=== PATIENT | male | born 1955 | race Caucasian/White ===

== ENCOUNTER → 2017-03-14 | Outpatient (CLI) | payer OTHER ==
[~2017-03-14] MED LIST: ASPI81TA27 PO; ATEN-60 PO; CLOP75TA28 PO; MELA3TAB18 PO; NOR10T PO; SIMV-13 PO
== END | disposition home or self-care (01) ==
LOC: Rad HDHVI 13:04
PROVIDERS: ATTEND Internal Medicine Cardiovascular Disease
DX: R42 Dizziness and giddiness (principal); Z95.0 Presence of cardiac pacemaker
CPT/HCPCS: 93306

== ENCOUNTER → 2017-04-14 | Outpatient (CLI) | payer OTHER ==
[~2017-04-14] VITALS: Ht 182.9 cm; Wt 93.0 kg
[~2017-04-14] MED LIST changes: +ADENOSINE 78 MG in GIVE UN-DILUTED 0 ML IV ONE; +ADENOSINE 90 MG/30 ML INJ IV ONE
[2017-04-14 12:42] LABS: Urine Bilirubin Negative (Negative); Urine Blood Negative /uL (Negative); Urine Color Yellow (Yellow); Urine Glucose Normal (Normal); Urine Ketone Negative (Negative); Urine Nitrite Negative (Negative); Urine Urobilinogen Normal (Negative); Urine pH 5.5 (5.0-8.0)
[2017-04-14 12:44] LABS: Basophils # (auto) 0 uL; Basophils % (auto) 0.6 % (0.0-2.0); CONDITION Y; Eosinophils # (auto) 0.4 uL; Eosinophils % (auto) 5.2 % (0.0-7.0); Hematocrit 43.8 % (41.0-53.0); Hemoglobin 14.4 g/dL (13.5-17.5); Lymphocytes # (auto) 1.9 uL; Lymphocytes % (auto) 24.5 % (10.0-50.0); Mean Corpuscular Hemoglobin 28.6 pg (28.0-32.0); Mean Corpuscular Volume 86.7 fL (80.0-100.0); Monocytes # (auto) 0.5 uL; Monocytes % (auto) 6.3 % (0.0-12.0); Neutrophils # (auto) 4.9 uL; Neutrophils % (auto) 63.4 % (37.0-80.0); Platelet Count (auto) 207 10^3/uL (140-450); Red Cell Distribution Width 14.4 % (11.6-16.0); White Blood Cell 7.7 10^3/uL (4.4-10.8)
[2017-04-14 12:55] LABS: Albumin 3.5 g/dL (3.4-5.0); Alkaline Phosphatase 85 U/L (45-117); Anion Gap 8 (5-15); Aspartate Aminotransferase 18 U/L (15-37); BUN/Creatinine Ratio 15.3; Bilirubin, Direct < 0.1 mg/dL (0-0.2); Bilirubin, Total 0.4 mg/dL (0.2-1.0); Blood Urea Nitrogen 30 mg/dL (7-18); Calcium 8.9 mg/dL (8.5-10.1); Carbon Dioxide 22 mmol/L (21-32); Chloride 109 mmol/L (98-107); Cholesterol 184 mg/dL (< 200); GFR African American 45 mL/min; GFR Non-African American 37 mL/min; Glucose 100 mg/dL (74-106); HDL Cholesterol 24 mg/dL (40-59); LDL Cholesterol 132 mg/dL (< 100); Potassium 4.6 mmol/L (3.5-5.1); Sodium 139 mmol/L (136-145); Total Protein 7.2 g/dL (6.4-8.2); Triglycerides 196 mg/dL (< 150)
== END | disposition home or self-care (01) ==
LOC: Rad HDHVI 07:59
PROVIDERS: ATTEND Internal Medicine Cardiovascular Disease
DX: I10 Essential (primary) hypertension (principal); D64.9 Anemia, unspecified; E78.00 Pure hypercholesterolemia, unspecified; R53.81 Other malaise; R97.20 Elevated prostate specific antigen [PSA]; R79.89 Other specified abnormal findings of blood chemistry
CPT/HCPCS: 36415; 78452; 80048; 80061; 80076; 81003; 82306; 83036; 84153; 84403; 84443; 85025; 93005; 96374; 96375; A9500; J0153

== ENCOUNTER → 2017-05-23 | Outpatient (CLI) | payer OTHER ==
[~2017-05-23] MED LIST changes: -ADENOSINE 78 MG in GIVE UN-DILUTED 0 ML IV ONE; -ADENOSINE 90 MG/30 ML INJ IV ONE
== END | disposition home or self-care (01) ==
LOC: Rad HDHVI 09:00
PROVIDERS: ATTEND Internal Medicine Cardiovascular Disease
DX: I70.1 Atherosclerosis of renal artery (principal); I71.4 Abdominal aortic aneurysm, without rupture
CPT/HCPCS: 93923

== ENCOUNTER → 2018-06-06 | Outpatient (CLI) | payer OTHER ==
[~2018-06-06] MED LIST changes: +IOHEXOL 350 MG/ML 100ML IJ ONE
[2018-06-06 11:00] VITALS: BP 114/71
[2018-06-06 11:45] VITALS: BP 125/68
== END | disposition home or self-care (01) ==
LOC: Rad HDHVI 10:54
PROVIDERS: ATTEND Internal Medicine
DX: I67.2 Cerebral atherosclerosis (principal); R42 Dizziness and giddiness; I50.9 Heart failure, unspecified; F17.200 Nicotine dependence, unspecified, uncomplicated
CPT/HCPCS: 70450; 82565; G0463; Q9967

== ENCOUNTER → 2019-05-09 | Outpatient (CLI) | payer OTHER ==
[~2019-05-09] VITALS: Ht 182.9 cm; Wt 93.0 kg
[~2019-05-09] MED LIST changes: +ADENOSINE 78 MG in GIVE UN-DILUTED 0 ML IV ONE; +ADENOSINE 90 MG/30 ML INJ IV ONE; +ASPI-404 PO; -ASPI81TA27 PO; -IOHEXOL 350 MG/ML 100ML IJ ONE; +cloNIDine HCL 0.1 MG TAB ONE
[2019-05-09 15:49] LABS: Basophils # (auto) 0 uL; Basophils % (auto) 0.5 % (0.0-2.0); Eosinophils # (auto) 0.3 uL; Eosinophils % (auto) 4.7 % (0.0-7.0); Hematocrit 45.7 % (41.0-53.0); Hemoglobin 14.9 g/dL (13.5-17.5); Lymphocytes # (auto) 1.5 uL; Lymphocytes % (auto) 21.3 % (10.0-50.0); Mean Corpuscular Hemoglobin 28.3 pg (28.0-32.0); Mean Corpuscular Hgb Conc. 32.7 g/dL (32.0-36.0); Mean Corpuscular Volume 86.8 fL (80.0-100.0); Monocytes # (auto) 0.6 uL; Monocytes % (auto) 8.1 % (0.0-12.0); Neutrophils # (auto) 4.5 uL; Neutrophils % (auto) 65.4 % (37.0-80.0); Nucleated Red Blood Cells % 0.1 %; Platelet Count (auto) 178 10^3/uL (140-450); Red Blood Cells 5.27 10^6/uL (4.5-5.90); Red Cell Distribution Width 14.8 % (11.8-14.3); White Blood Cell 6.9 10^3/uL (4.4-10.8)
[2019-05-09 15:50] LABS: Urine Blood Negative /uL (Negative)
[2019-05-09 16:00] LABS: Albumin 3.4 g/dL (3.4-5.0); Potassium 4.2 mmol/L (3.5-5.1)
[2019-05-09 16:07] LABS: BUN/Creatinine Ratio 13.8; Bilirubin, Total 0.3 mg/dL (0.2-1.0); Calcium 8.9 mg/dL (8.5-10.1); Total Protein 7.5 g/dL (6.4-8.2)
[2019-05-09 16:11] LABS: Prostate Specific Antigen 0.6 ng/mL (0.0-4.0)
[2019-05-09 16:13] LABS: Free T4 (Free Thyroxine) 1.08 ng/dL (0.89-1.76)
== END | disposition home or self-care (01) ==
LOC: Rad HDHVI 08:11
PROVIDERS: ATTEND Internal Medicine Cardiovascular Disease
DX: Z00.00 Encounter for general adult medical examination without abnormal findings (principal); I34.0 Nonrheumatic mitral (valve) insufficiency; E03.9 Hypothyroidism, unspecified; C61 Malignant neoplasm of prostate; E29.1 Testicular hypofunction; K90.9 Intestinal malabsorption, unspecified; N39.0 Urinary tract infection, site not specified; D51.9 Vitamin B12 deficiency anemia, unspecified; I10 Essential (primary) hypertension; R00.2 Palpitations; Z79.899 Other long term (current) drug therapy
CPT/HCPCS: 36415; 78452; 80053; 80061; 81003; 82306; 82607; 83036; 84153; 84403; 84439; 84443; 85025; 93005; 93306; 96374; 96375; A9500; J0153

== ENCOUNTER → 2019-07-03 | Outpatient (CLI) | payer OTHER ==
[~2019-07-03] MED LIST changes: -ADENOSINE 78 MG in GIVE UN-DILUTED 0 ML IV ONE; -ADENOSINE 90 MG/30 ML INJ IV ONE; +READI-CAT 2 (BARIUM SULF)(VANILLA SMOOTHIE) 450ML ONE; -cloNIDine HCL 0.1 MG TAB ONE
== END | disposition home or self-care (01) ==
LOC: Rad HDHVI 14:52
PROVIDERS: ATTEND Internal Medicine Cardiovascular Disease
DX: I71.4 Abdominal aortic aneurysm, without rupture (principal); K57.90 Diverticulosis of intestine, part unspecified, without perforation or abscess without bleeding; D71 Functional disorders of polymorphonuclear neutrophils; N26.1 Atrophy of kidney (terminal)
CPT/HCPCS: 74176

== ENCOUNTER → 2019-07-09 | Outpatient (CLI) | payer OTHER ==
[~2019-07-09] MED LIST changes: -READI-CAT 2 (BARIUM SULF)(VANILLA SMOOTHIE) 450ML ONE
[2019-07-09 16:05] LABS: Albumin 3.2 g/dL (3.4-5.0); BUN/Creatinine Ratio 11.5; Calcium 9.2 mg/dL (8.5-10.1); Potassium 4.8 mmol/L (3.5-5.1)
[2019-07-09 16:08] LABS: Basophils # (auto) 0 uL; Basophils % (auto) 0.7 % (0.0-2.0); Bilirubin, Total 0.4 mg/dL (0.2-1.0); Eosinophils # (auto) 0.3 uL; Eosinophils % (auto) 5.1 % (0.0-7.0); Hematocrit 41.7 % (41.0-53.0); Hemoglobin 13.7 g/dL (13.5-17.5); Lymphocytes # (auto) 0.8 uL; Lymphocytes % (auto) 14.1 % (10.0-50.0); Mean Corpuscular Hemoglobin 28.4 pg (28.0-32.0); Mean Corpuscular Hgb Conc. 32.9 g/dL (32.0-36.0); Mean Corpuscular Volume 86.3 fL (80.0-100.0); Monocytes # (auto) 0.6 uL; Monocytes % (auto) 10.4 % (0.0-12.0); Neutrophils % (auto) 69.7 % (37.0-80.0); Nucleated Red Blood Cells % 0.1 %; Platelet Count (auto) 174 10^3/uL (140-450); Red Blood Cells 4.83 10^6/uL (4.5-5.90); Total Protein 7.5 g/dL (6.4-8.2); White Blood Cell 5.8 10^3/uL (4.4-10.8)
[2019-07-09 16:42] LABS: Free T4 (Free Thyroxine) 1.2 ng/dL (0.89-1.76)
[2019-07-09 16:43] LABS: Prostate Specific Antigen 1.15 ng/mL (0.0-4.0)
== END | disposition home or self-care (01) ==
LOC: LAB 09:51
PROVIDERS: ATTEND Internal Medicine Cardiovascular Disease
DX: E03.9 Hypothyroidism, unspecified (principal); K90.9 Intestinal malabsorption, unspecified; C61 Malignant neoplasm of prostate; E29.1 Testicular hypofunction; I11.0 Hypertensive heart disease with heart failure; I50.9 Heart failure, unspecified; Z79.899 Other long term (current) drug therapy
CPT/HCPCS: 36415; 80053; 80061; 82306; 82607; 83036; 83735; 84153; 84403; 84439; 84443; 85025

== ENCOUNTER → 2019-07-24 | Outpatient (CLI) | payer OTHER ==
[2019-07-24 16:05] LABS: Albumin 3.3 g/dL (3.4-5.0); Calcium 9.2 mg/dL (8.5-10.1); Potassium 4.5 mmol/L (3.5-5.1)
[2019-07-24 16:12] LABS: BUN/Creatinine Ratio 14.6; Bilirubin, Total 0.4 mg/dL (0.2-1.0); Total Protein 7.8 g/dL (6.4-8.2)
== END | disposition home or self-care (01) ==
LOC: LAB 13:10
PROVIDERS: ATTEND Internal Medicine Cardiovascular Disease
DX: I10 Essential (primary) hypertension (principal)
CPT/HCPCS: 36415; 80053

== ENCOUNTER → 2019-08-14 | Outpatient (CLI) | payer OTHER ==
[~2019-08-14] MED LIST changes: +FURO40TA4 PO; +LIDOCAINE 2%HCL (LOCAL ANESTH.) INJ 20ML MDV ONE; +OMEP20TA85 PO; +POTA-180 PO
[2019-08-14 11:05] VITALS: BP 125/74
[2019-08-14 11:36] VITALS: BP 125/74
--- NOTE | 2019-08-14 11:36 | NUR ---
Pre-Op Discharge Summary: See e-MAR for any medications given for this visit. Pre-op orders received and carried out per MD of EKG, LABS and chest xrays. Patient given a copy of EKG with instructions to go to [facility] out patient for further follow up care.
[2019-08-14 11:58] LABS: Basophils # (auto) 0.1 uL; Basophils % (auto) 0.8 % (0.0-2.0); Eosinophils # (auto) 0.6 uL; Eosinophils % (auto) 9.5 % (0.0-7.0); Hematocrit 39.6 % (41.0-53.0); Hemoglobin 12.9 g/dL (13.5-17.5); Lymphocytes # (auto) 1.6 uL; Lymphocytes % (auto) 24.6 % (10.0-50.0); Mean Corpuscular Hemoglobin 28.7 pg (28.0-32.0); Mean Corpuscular Hgb Conc. 32.7 g/dL (32.0-36.0); Mean Corpuscular Volume 87.9 fL (80.0-100.0); Monocytes # (auto) 0.5 uL; Monocytes % (auto) 8.3 % (0.0-12.0); Neutrophils # (auto) 3.7 uL; Neutrophils % (auto) 56.8 % (37.0-80.0); Nucleated Red Blood Cells % 0.1 %; Platelet Count (auto) 139 10^3/uL (140-450); White Blood Cell 6.5 10^3/uL (4.4-10.8)
[2019-08-14 12:08] LABS: INR 0.98 (0.9-1.15); Partial Thromboplastin Time 28.4 sec (23.64-32.05)
[2019-08-14 12:24] LABS: Potassium 4.3 mmol/L (3.5-5.1)
[2019-08-14 12:42] LABS: BUN/Creatinine Ratio 16.1
== END | disposition home or self-care (01) ==
LOC: Rad HDHVI 10:04
PROVIDERS: ATTEND Internal Medicine Cardiovascular Disease
DX: Z01.812 Encounter for preprocedural laboratory examination (principal); R94.31 Abnormal electrocardiogram [ECG] [EKG]
CPT/HCPCS: 36415; 71046; 80048; 85025; 85610; 85730; 93005; G0463

== ENCOUNTER 2019-08-15 09:35 | Day surgery (SDC) | payer OTHER ==
[~2019-08-15] VITALS: Ht 182.9 cm; Wt 86.2 kg
[~2019-08-15 09:35] MED LIST changes: -LIDOCAINE 2%HCL (LOCAL ANESTH.) INJ 20ML MDV ONE
[2019-08-15] MEDS ORDERED: ANGIOMAX 250 MG VIAL IV ONE (11:11)
[2019-08-15] MEDS ORDERED: fentaNYL CITRATE 100 MCG/2 ML VL ONE (11:12)
[2019-08-15] MEDS ORDERED: IODIXANOL 320MG/ML 100ML BTL IV ONE (11:12)
[2019-08-15] MEDS ORDERED: SODIUM CHL 0.9% 50 ML ONE (11:12)
[2019-08-15] MEDS ORDERED: MIDAZOLAM HCL 1MG/1ML-2 ML VIAL ONE (11:12)
[2019-08-15] MEDS ORDERED: LIDOCAINE 2%HCL (LOCAL ANESTH.) INJ 20ML MDV ONE (11:13)
[2019-08-15] MEDS ORDERED: ONDANSETRON HCL 4 MG/2 ML VIAL ONE ×2 (11:58→12:30)
[2019-08-15] MEDS ORDERED: ONDANSETRON HCL 4 MG/2 ML VIAL IV PRN (12:15)
[2019-08-15] MEDS ORDERED: FUROSEMIDE 20 MG/2 ML VIAL IV ONE (12:15)
[2019-08-15] MEDS ORDERED: SODIUM CHLORIDE 0.9% 500 ML IV ONE (12:15)
[2019-08-15] MEDS ORDERED: ACETAMINOPHEN 500 MG TAB PO PRN (12:15)
[2019-08-15] MEDS ORDERED: FUROSEMIDE 20 MG/2 ML VIAL ONE (13:16)
== END 2019-08-15 15:15 | disposition home or self-care (01) ==
LOC: CATH 09:35
PROVIDERS: ATTEND Internal Medicine Cardiovascular Disease
DX: I25.810 Atherosclerosis of coronary artery bypass graft(s) without angina pectoris (principal); I25.5 Ischemic cardiomyopathy; I13.0 Hypertensive heart and chronic kidney disease with heart failure and stage 1 through stage 4 chronic kidney disease, or unspecified chronic kidney disease; N18.3 Chronic kidney disease, stage 3 (moderate); I50.9 Heart failure, unspecified; E78.5 Hyperlipidemia, unspecified; I73.9 Peripheral vascular disease, unspecified; F17.210 Nicotine dependence, cigarettes, uncomplicated; Z88.8 Allergy status to other drugs, medicaments and biological substances; Z95.1 Presence of aortocoronary bypass graft; Z79.82 Long term (current) use of aspirin; Z79.899 Other long term (current) drug therapy
CPT/HCPCS: 93005; 93461; C1751; C1760; C1894; J1644; J1940; J2250; J2405; J3010; Q9967; 99152; 99153

== ENCOUNTER → 2019-09-25 | Outpatient (CLI) | payer OTHER ==
[~2019-09-25] MED LIST changes: +CYANOCOBALAMIN (B-12) 1000 MCG/1 ML VIAL IM ONE; +CYANOCOBALAMIN (B-12) 1000 MCG/1 ML VIAL ONE
--- NOTE | 2019-09-25 09:55 | NUR ---
PT. TO [facility]F CLINIC FOR INDUCTION AFTER RECENT ANGIOGRAM SHOWING REDUCED EF. PT. 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 PT. ALSO WITH CRI, WITH HX OF CREATININE GREATER THAN 3 PER PT. WHEN HOSPITALIZED AT [facility]. MEDICAL RECORDS REQUESTED. PT. IS AOX4 , PWD, WITH 4+ PITTING EDEMA RLE AND 3+ PITTING EDEMA TO LLE, EXTREMITY OF EVH WITH CABG. PT. STATES HE HAS BEEN USING MORE LASIX THAN HIS 20MG PER DAY RX, MOSTLY 40-60MG DAILY. PT. STATES HE KEEPS HIS IRONER APPRISED OF DIURETIC INCREASE, WHEN HE SEES HIM. (SONIA). ORDERS RECEIVED AND CARRIED OUT. SEE NSG ASSESS.
--- NOTE | 2019-09-25 10:05 | NUR ---
CARDIODYNAMICS DONE WITH RESULTS REVIEWED WITH PT. AND CHARTED FOR MD REVIEW.
--- NOTE | 2019-09-25 10:10 | NUR ---
EKG DONE SHOWING ATRIAL PACED COMPLEXES. RATE RECENTLY INCREASED TO 70BPM, AFTER INCREASING FATIGUE. PT. WITH 100% CAPTURE, WITH NO PVC'S NOTED.
--- NOTE | 2019-09-25 10:30 | NUR ---
6MWT DONE WITH PT. ONLY DOING 180 METERS WITH C/O SOB DURING TEST, AND HIP PAIN 3/10 DURING TEST. O2 SATS DECREASED TO 91% DURING WALK FROM BASELINE 98% PRE TEST. RESULTS REVIEWED WITH PT. AND CHARTED FOR MD REVIEW. NOTE: PT. STATED THAT HE HAS BEEN USING NEIGHBORS O2 CONCENTRATOR D/T WORSENING SOB WITH EXERTION.
--- NOTE | 2019-09-25 11:30 | NUR ---
LABS DRAWN AND SENT PER MD ORDER.
--- NOTE | 2019-09-25 11:45 | NUR ---
NOW AT BEDSIDE WITH LIST OF PT'S MEDS. MED REC REVIEWED WITH PT. AND UPDATED FOR MD REVIEW. PT. STATES HE TAKES ALL OF HIS MEDS IN THE MORNING. PT"S PREVIOUS ABNORMAL LABS REVIEWED WITH PT. AND SPOUSE.
--- NOTE | 2019-09-25 12:05 | NUR ---
MEDS: PT. MEDICATED WITH VIT. B12 1000MCG IM RT DELT. PER MD ORDER.
[2019-09-25 12:15] VITALS: BP 135/71
--- NOTE | 2019-09-25 12:15 | NUR ---
Discharge Instructions See e-MAR for any mediations given with this visit. Patient education given on disease process. Patient verbalized understanding. Previous labs reviewed. Patient discharged in stable condition with after care instructions and follow up appointment. WE WILL FOLLOW UP ON PREVIOUS ORDER FOR HOME O2 ORDER, AND WILL FAX LAB RESULTS TO DR. SCOTT FOR HIS APPT. PT. TO BE CALLED AFTER MD [place]. OF DIAGNOSTICS AND LABS. ALL QUESTIONS ANSWERED, WITH ADDITIONAL INSTRUCTION ON 2 GM SODIUM CARDIAC DIET, ELEVATING LEGS MUCH POSSIBLE IN HIS NEW RECLINER, AND DO DAILY WTS.
[2019-09-25 15:58] LABS: Basophils # (auto) 0.1 uL; Basophils % (auto) 0.8 % (0.0-2.0); Eosinophils # (auto) 0.4 uL; Eosinophils % (auto) 6.7 % (0.0-7.0); Hematocrit 35.4 % (41.0-53.0); Hemoglobin 11.7 g/dL (13.5-17.5); Lymphocytes % (auto) 15.2 % (10.0-50.0); Mean Corpuscular Hemoglobin 28.6 pg (28.0-32.0); Mean Corpuscular Volume 86.8 fL (80.0-100.0); Monocytes # (auto) 0.6 uL; Monocytes % (auto) 8.7 % (0.0-12.0); Neutrophils # (auto) 4.6 uL; Neutrophils % (auto) 68.6 % (37.0-80.0); Nucleated Red Blood Cells % 0.1 %; Platelet Count (auto) 161 10^3/uL (140-450); Red Blood Cells 4.08 10^6/uL (4.5-5.90); Red Cell Distribution Width 16.3 % (11.8-14.3); White Blood Cell 6.6 10^3/uL (4.4-10.8)
[2019-09-25 16:05] LABS: Calcium 8.7 mg/dL (8.5-10.1)
[2019-09-25 16:06] LABS: BUN/Creatinine Ratio 15.3
== END | disposition home or self-care (01) ==
LOC: CHF HDHVI 09:41
PROVIDERS: ATTEND Internal Medicine Cardiovascular Disease
DX: I25.10 Atherosclerotic heart disease of native coronary artery without angina pectoris (principal); I13.0 Hypertensive heart and chronic kidney disease with heart failure and stage 1 through stage 4 chronic kidney disease, or unspecified chronic kidney disease; I50.9 Heart failure, unspecified; N18.3 Chronic kidney disease, stage 3 (moderate); I49.5 Sick sinus syndrome; I73.9 Peripheral vascular disease, unspecified; D64.9 Anemia, unspecified; R09.02 Hypoxemia; E78.5 Hyperlipidemia, unspecified; Z79.82 Long term (current) use of aspirin; Z87.891 Personal history of nicotine dependence; Z79.899 Other long term (current) drug therapy; Z95.1 Presence of aortocoronary bypass graft
CPT/HCPCS: 36415; 80048; 83735; 83880; 85025; 93005; 93701; 94618; 96372; G0463; J3420

== ENCOUNTER 2020-08-10 07:57 | Emergency (ER) | payer OTHER ==
[~2020-08-10] VITALS: Ht 182.9 cm; Wt 83.9 kg
[~2020-08-10 07:57] MED LIST changes: -ASPI-404 PO; +ASPI-543 PO; -CYANOCOBALAMIN (B-12) 1000 MCG/1 ML VIAL IM ONE; -CYANOCOBALAMIN (B-12) 1000 MCG/1 ML VIAL ONE
[2020-08-10 08:48] LABS: Basophils # (auto) 0 10 ^3/uL (0-0.2); Eosinophils # (auto) 0.3 10 ^3/uL (0-0.8); Eosinophils % (auto) 3.8 % (0.0-7.0); Mean Corpuscular Volume 81.3 fL (80.0-100.0); Monocytes # (auto) 0.9 10 ^3/uL (0-1.3)
[2020-08-10 08:50] LABS: Basophils % (auto) 0.5 % (0.0-2.0); Hematocrit 34.4 % (41.0-53.0); Hemoglobin 10.9 g/dL (13.5-17.5); Lymphocytes # (auto) 0.7 10 ^3/uL (0.4-5.4); Lymphocytes % (auto) 8.6 % (10.0-50.0); Mean Corpuscular Hemoglobin 25.7 pg (28.0-32.0); Mean Corpuscular Hgb Conc. 31.6 g/dL (32.0-36.0); Monocytes % (auto) 11.3 % (0.0-12.0); Neutrophils # (auto) 5.9 10 ^3/uL (1.6-8.6); Neutrophils % (auto) 75.8 % (37.0-80.0); Platelet Count (auto) 184 10^3/uL (140-450); Red Blood Cells 4.23 10^6/uL (4.5-5.90); Red Cell Distribution Width 17.3 % (11.8-14.3); White Blood Cell 7.8 10^3/uL (4.4-10.8)
[2020-08-10 09:04] LABS: INR 1.15 (0.9-1.15); Partial Thromboplastin Time 27.6 sec (23.0-31.2)
[2020-08-10 09:08] LABS: Albumin 3.7 g/dL (3.4-5.0); Calcium 9.2 mg/dL (8.5-10.1); Magnesium 3.7 mg/dL (1.6-2.6); Potassium 4.3 mmol/L (3.5-5.1)
[2020-08-10 09:16] LABS: BUN/Creatinine Ratio 24.3; Bilirubin, Total 0.7 mg/dL (0.2-1.0); Total Protein 7.8 g/dL (6.4-8.2)
[2020-08-10 10:21] LABS: Urine Bacteria NONE SEEN /hpf (None Seen); Urine Blood Negative /uL (Negative); Urine Hyaline Cast MOD /lpf (0 - 2); Urine WBC 1 /hpf (0 - 3)
[2020-08-10 11:00] VITALS: BP 160/86
== END 2020-08-10 13:48 | disposition home or self-care (01) ==
LOC: ER 07:57
DX: G93.41 Metabolic encephalopathy (principal); I12.9 Hypertensive chronic kidney disease with stage 1 through stage 4 chronic kidney disease, or unspecified chronic kidney disease; N18.9 Chronic kidney disease, unspecified; D64.9 Anemia, unspecified; F03.90 Unspecified dementia, unspecified severity, without behavioral disturbance, psychotic disturbance, mood disturbance, and anxiety; I25.10 Atherosclerotic heart disease of native coronary artery without angina pectoris; Z88.8 Allergy status to other drugs, medicaments and biological substances
CPT/HCPCS: 36415; 71045; 80053; 81001; 83735; 84484; 85025; 85610; 85730; 93005

== ENCOUNTER 2020-08-25 10:25 | Inpatient (IN) | payer OTHER ==
[~2020-08-25] VITALS: Ht 182.9 cm; Wt 87.0 kg
[2020-08-25] MEDS ORDERED: SODIUM CHLORIDE 0.9% 2,500 ML IV ONE (11:00)
[2020-08-25] MEDS ORDERED: SODIUM CHLORIDE 0.9% 1,000 ML IV ONE ×2 (11:00→13:15)
[2020-08-25 11:55] LABS: Basophils # (auto) 0 10 ^3/uL (0-0.2); Basophils % (auto) 0.5 % (0.0-2.0); Eosinophils # (auto) 0.1 10 ^3/uL (0-0.8); Hematocrit 32.7 % (41.0-53.0); Hemoglobin 10.1 g/dL (13.5-17.5); Lymphocytes # (auto) 0.5 10 ^3/uL (0.4-5.4); Monocytes # (auto) 0.5 10 ^3/uL (0-1.3); Neutrophils # (auto) 6.6 10 ^3/uL (1.6-8.6); White Blood Cell 7.7 10^3/uL (4.4-10.8)
[2020-08-25 11:56] LABS: Eosinophils % (auto) 1.2 % (0.0-7.0); Mean Corpuscular Hemoglobin 24.5 pg (28.0-32.0); Mean Corpuscular Volume 79.1 fL (80.0-100.0); Monocytes % (auto) 7.1 % (0.0-12.0); Neutrophils % (auto) 85.2 % (37.0-80.0); Platelet Count (auto) 168 10^3/uL (140-450); Red Blood Cells 4.13 10^6/uL (4.5-5.90)
[2020-08-25 12:23] LABS: Albumin 3.4 g/dL (3.4-5.0); Calcium 9.6 mg/dL (8.5-10.1); Potassium 4.1 mmol/L (3.5-5.1)
[2020-08-25 12:26] LABS: BUN/Creatinine Ratio 18.4; Total Protein 7.6 g/dL (6.4-8.2)
[2020-08-25] MEDS ORDERED: NITROGLYCERIN 0.4 MG SL TAB SL PRN (13:00)
[2020-08-25] MEDS ORDERED: VANCOMYCIN 1GM/250ML 250 ML IV ONE (13:00)
[2020-08-25] MEDS ORDERED: GENTAMICIN SULFATE 240 MG in D5W 5% 100 ML IV ONE ×2 (13:15→20:00)
--- NOTE | 2020-08-25 14:37 | NUR ---
RECEIVED REPORT FROM EMMA IN ER, WILL AWAIT PATIENT.
[2020-08-25 15:06] LABS: Phosphorus 4.7 mg/dL (2.5-4.90)
--- NOTE | 2020-08-25 15:10 | NUR ---
CONTACTED DAYANNA COBURN, MADE AWARE OF DR ROWE ORDERS FOR PERITONEAL DIALYSIS AND THE SPECIFIC INSTRUCTIONS UNDER COMMUNICATION NOTE. VERBALIZES UNDERSTANDING.
--- NOTE | 2020-08-25 15:47 | NUR ---
CONTACTED DR MONROE FOR PATIENTS HIGH BLOOD PRESSURE 164/[address] MONROE ORDERS RECEIVED FOR CLONIDINE 0.1MG Q 4 PRN
[2020-08-25] MEDS ORDERED: GENT0.1O5 TOP (16:32)
[2020-08-25] MEDS ORDERED: CHOL20007 PO (16:53)
[2020-08-25 16:57] VITALS: BP 155/84
[2020-08-25] MEDS ORDERED: SODI10PA PO (17:00)
[2020-08-25] MEDS ORDERED: MELA10CA PO (17:01)
[2020-08-25] MEDS ORDERED: DOCU-80 PO (17:03)
[2020-08-25] MEDS ORDERED: CALC500C66 PO (17:05)
[2020-08-25] MEDS ORDERED: HYDR4CRE35 PR (17:08)
[2020-08-25] MEDS ORDERED: [UNRECOGNIZED DRUG - CODE] EX (17:10)
[2020-08-25] MEDS ORDERED: PERITONEAL DIALYSIS 2.5% SOLN 2,000 ML IP SCH (18:00)
[2020-08-25] MEDS ORDERED: PERITONEAL DIALYSIS 2.5% SOLN 2,000 ML IP ONE ×2 (18:15→20:00)
[2020-08-25] MEDS ORDERED: FLUT1AER3 IN (19:11)
[2020-08-25] MEDS ORDERED: EZET10TA22 PO (19:11)
[2020-08-25] MEDS: cloNIDine HCL 0.1 MG TAB PO PRN (19:43)
[2020-08-25] MEDS: MORPHINE SULF INJ 2 MG/ML SYRINGE 1ML IV PRN (19:43)
--- NOTE | 2020-08-25 20:00 | NUR ---
PD CARRIED OUT WITH 500 ML PD SOLUTION 2.5% ORDERED. ADVISED PATIENT TO TURN FROM SIDE TO SIDE WHILE DIALYSIS IS ONGOING. WILL LEAVE TO DWELL FOR 15 MINUTES ORDERED AND DRAIN. WILL FOLLOW UP.
[2020-08-25 21:30] VITALS: BP 145/72
--- NOTE | 2020-08-25 21:30 | NUR ---
PD OUTPUT SENT TO LAB.
--- NOTE | 2020-08-25 22:10 | NUR ---
UA SENT TO LAB FOR UA AND URINE CULTURE.
[2020-08-25 22:42] LABS: Urine Bacteria NONE SEEN /hpf (None Seen); Urine Blood Negative /uL (Negative); Urine Hyaline Cast MANY /lpf (0 - 2); Urine Mucus FEW (None Seen); Urine Specific Gravity 1.015 (1.001-1.035); Urine WBC 1 /hpf (0 - 3)
[2020-08-26] MEDS: MORPHINE SULF INJ 2 MG/ML SYRINGE 1ML IV PRN (02:32)
[2020-08-26 04:39] VITALS: BP 144/80
--- NOTE | 2020-08-26 07:30 | NUR ---
RECEIVED REPORT FROM NIGHT NURSE. PATIENT RESTING IN BED, NO DISTRESS NOTED. WILL CONTINUE TO MONITOR.
[2020-08-26] MEDS ORDERED: CHOLECALCIFEROL (VITD3) 1,000UNIT=25mCg TAB PO SCH (08:00)
[2020-08-26 09:00] VITALS: BP 146/84
[2020-08-26] MEDS: ATENOLOL 25 MG TAB PO SCH (09:23)
[2020-08-26] MEDS: PANTOPRAZOLE 40 MG TAB PO SCH (09:23)
[2020-08-26] MEDS: CLOPIDOGREL BISULFATE 75 MG TAB PO SCH (09:23)
[2020-08-26] MEDS: FUROSEMIDE 40 MG/4 ML VIAL IV SCH ×2 (09:30→17:25)
[2020-08-26] MEDS ORDERED: ALLOPURINOL 100 MG TAB PO SCH (10:00)
[2020-08-26] MEDS ORDERED: FUROSEMIDE 40 MG/4 ML VIAL IV SCH (10:00)
[2020-08-26] MEDS: EZETIMIBE 10MG PO SCH (10:00)
[2020-08-26] MEDS ORDERED: PERITONEAL DIALYSIS 2.5% SOLN 2,000 ML IP SCH ×4 (10:00→22:00)
[2020-08-26] MEDS: ALLOPURINOL 100 MG TAB PO SCH ×2 (10:00→11:23)
--- NOTE | 2020-08-26 10:48 | NUR ---
PAGED DOCTOR RIBEIRO FOR ORDER CLARIFICATION. WILL WAIT FOR CALL BACK.
[2020-08-26] MEDS: CALCITRIOL 0.25 MCG CAP PO SCH (11:23)
[2020-08-26 11:40] VITALS: BP 151/88
--- NOTE | 2020-08-26 12:11 | NUR ---
Nutrition Assessment Note: please see attached link for complete assessment Est energy needs BW 85 [id number] kcal (30-33 kcal BW), Est protein needs: 102-120 g (1.2-1.5g/kg BW r/t PD). Will reassess prn Addendum: 08/26/20 at [address] Amended: Links added.
--- NOTE | 2020-08-26 12:34 | NUR ---
DOCTOR RIBEIRO AT BEDSIDE.
--- NOTE | 2020-08-26 12:35 | NUR ---
PER DOCTOR QUINTIN, NO PERITONEAL DIALYSIS AT THIS TIME. PATIENT TO FOLLOW UP WITH DR. SCOTT OUT PATIENT. CLEARED FROM A NEPHROLOGY STANDPOINT.
[2020-08-26] MEDS: DOBUTamine 1000MCG/ML 250 ML IV SCH (14:39)
[2020-08-26 16:31] VITALS: BP 141/71
--- NOTE | 2020-08-26 17:30 | NUR ---
DOCTOR MONROE AT BEDSIDE. ORDERS RECEIVED, WILL PLACE AND CARRY OUT.
--- NOTE | 2020-08-26 17:33 | NUR ---
doctor hunter at Addendum: 08/26/20 at 1734 by Lyn Hensley RN DISREGARD PREVIOUS ENTRY
[2020-08-26] MEDS: ATORVASTATIN 20 MG TAB PO SCH (21:42)
[2020-08-26 22:05] VITALS: BP 156/81
[2020-08-26] MEDS: LEVALBUTEROL HCL 1.25 MG/3 ML NEB NEB SCH (22:23)
--- NOTE | 2020-08-26 22:30 | NUR ---
AT BEDSIDE FOR MED NEB TX. PT TOLERATING TX WELL VIA MASK. RT NAME AND PAGER ASSIGNMENT WRITTEN ON PTS ROOM BOARD.
[2020-08-27] VITALS (7 sets, daily range): BP systolic 143–160; BP diastolic 72–83
[2020-08-27] MEDS ORDERED: PERITONEAL DIALYSIS 2.5% SOLN 2,000 ML IP SCH (06:00)
[2020-08-27] MEDS: FUROSEMIDE 40 MG/4 ML VIAL IV SCH ×2 (06:15→17:44)
[2020-08-27 06:30] LABS: Potassium 3.8 mmol/L (3.5-5.1)
[2020-08-27] MEDS: LEVALBUTEROL HCL 1.25 MG/3 ML NEB NEB SCH ×3 (06:31→18:13)
[2020-08-27 06:38] LABS: Albumin 2.8 g/dL (3.4-5.0); BUN/Creatinine Ratio 20.7; Bilirubin, Total 0.6 mg/dL (0.2-1.0); Calcium 8.7 mg/dL (8.5-10.1); Total Protein 6.3 g/dL (6.4-8.2)
--- NOTE | 2020-08-27 07:30 | NUR ---
RECEIVED REPORT FROM NIGHT NURSE. PATIENT RESTING IN BED, NO DISTRESS NOTED. WILL CONTINUE TO MONITOR.
--- NOTE | 2020-08-27 08:42 | NUR ---
PATIENT COMPLAINING OF NAUSEA/ DRY HEAVES. PAGED DR. MONROE FOR ORDERS.
--- NOTE | 2020-08-27 08:43 | NUR ---
RECEIVED ORDERS FROM DR. MONROE, WILL PLACE AND CARRY OUT.
[2020-08-27] MEDS ORDERED: METOCLOPRAMIDE HCL 5MG/ml INJ 2ml VIAL IV PRN (08:45)
[2020-08-27] MEDS: DOBUTamine 1000MCG/ML 250 ML IV SCH (09:35)
[2020-08-27] MEDS: EZETIMIBE 10MG PO SCH (10:00)
[2020-08-27] MEDS: ALLOPURINOL 100 MG TAB PO SCH (10:22)
[2020-08-27] MEDS: PANTOPRAZOLE 40 MG TAB PO SCH ×2 (10:22→21:08)
[2020-08-27] MEDS: CALCITRIOL 0.25 MCG CAP PO SCH (10:23)
[2020-08-27] MEDS: ATENOLOL 25 MG TAB PO SCH (10:23)
[2020-08-27] MEDS: CLOPIDOGREL BISULFATE 75 MG TAB PO SCH (10:23)
[2020-08-27] MEDS: cloNIDine HCL 0.1 MG TAB PO PRN (13:48)
--- NOTE | 2020-08-27 14:41 | NUR ---
assessment Patient is a 64 year old male who is alert and oriented and seems irritated with answering questions. Per patient prior to admission patient lived home with his Abhilash and functioned independently. Patient informed me he is able to care for his own ADLs. Per patient he will return home to his prior living arrangements post discharge and family will transport him home. Patient informed me he has oxygen for home use. Patient informed me he has no need for fww or cane. Patients PCP is Dr Diaz. Patient informed me he came to Er for chest pain. Patient has no post discharge needs identified at this time. I informed patient he has a right to speak to a social service coordinator regarding all care. I informed patient he has a right to participate in any and all discharge planning. Patient does not have a POA and advanced directive. I have offered patient information on POA and advanced directives. I informed the patient the advantages and benefits of having an Advanced Directive. Patient verbalized understanding and agreed to discharge plan. Addendum: 08/27/20 at 1453 by Marcy GAMEZ Amended: Links added.
--- NOTE | 2020-08-27 15:06 | NUR ---
PATIENT OFF UNIT. AMA PAPERWORK SIGNED AND PLACED IN CHART. PATIENT IN LOBBY VISITING WITH . EDUCATION PROVIDED.
--- NOTE | 2020-08-27 16:00 | NUR ---
DOCTOR ARENAS AT BEDSIDE.
[2020-08-27] MEDS: SUCRALFATE 1 GM/10 ML ORAL SUSP PO SCH ×2 (17:00→21:08)
--- NOTE | 2020-08-27 17:31 | NUR ---
PATIENT NPO UNTIL AFTER ABDOMINAL ULTRASOUND. 1700 CARAFATE DOSE HELD.
[2020-08-27] MEDS: ATORVASTATIN 20 MG TAB PO SCH (21:08)
[2020-08-28 05:24] VITALS: BP 145/74
[2020-08-28] MEDS: SUCRALFATE 1 GM/10 ML ORAL SUSP PO SCH ×3 (05:52→17:00)
[2020-08-28] MEDS: FUROSEMIDE 40 MG/4 ML VIAL IV SCH ×2 (05:53→18:00)
[2020-08-28] MEDS: DOBUTamine 1000MCG/ML 250 ML IV SCH (05:53)
[2020-08-28] MEDS: LEVALBUTEROL HCL 1.25 MG/3 ML NEB NEB SCH ×2 (06:39→14:00)
[2020-08-28 06:48] LABS: Albumin 2.8 g/dL (3.4-5.0); BUN/Creatinine Ratio 19.5; Calcium 8.7 mg/dL (8.5-10.1)
[2020-08-28 06:51] LABS: Bilirubin, Total 0.7 mg/dL (0.2-1.0); Total Protein 6.7 g/dL (6.4-8.2)
[2020-08-28 09:20] VITALS: BP 154/76
--- NOTE | 2020-08-28 09:30 | NUR ---
Held Medication Held Plavix due to possible procedure. Dr. Diaz is aware.
[2020-08-28] MEDS: ALLOPURINOL 100 MG TAB PO SCH (09:33)
[2020-08-28] MEDS: CALCITRIOL 0.25 MCG CAP PO SCH (09:33)
[2020-08-28] MEDS: PANTOPRAZOLE 40 MG TAB PO SCH (09:33)
[2020-08-28] MEDS: ATENOLOL 25 MG TAB PO SCH (09:33)
[2020-08-28] MEDS: EZETIMIBE 10MG PO SCH (09:35)
[2020-08-28] MEDS: CLOPIDOGREL BISULFATE 75 MG TAB PO SCH (09:35)
[2020-08-28 11:50] LABS: INR 1.17 (0.9-1.15); Partial Thromboplastin Time 26.8 sec (23.0-31.2)
[2020-08-28 12:59] VITALS: BP 146/75
[2020-08-28 18:21] VITALS: BP 146/75
[2020-08-28 19:20] VITALS: BP 154/79
--- NOTE | 2020-08-28 19:25 | NUR ---
Discharge instructions given as ordered. Encourage to follow up with Monday08/31/2020 @10am as instructed. All questions and concerns addressed. Patient verbalized understanding. Medication reconciliation form completed and copy given to patient. IV removed with catheter intact, pressure dressing applied. Telemetry unit returned to ICU. Patient taken to vehicle via wheelchair with all personal belongings, accompanied by staff. No distress noted at time of departure.
--- NOTE | 2020-08-28 19:32 | NUR ---
Closing Shift Note Patient resting in bed. Report given. Will endorse care to the manufacturing shift supervisor care RN. Dobutamine has been stopped. shift mgr RN to discharge.
== END 2020-08-28 19:25 | disposition home or self-care (01) | DRG 871 ==
LOC: ER 10:25 → TELE 10:26 → ER 13:34 → TELE-CENTR 15:32
PROVIDERS: ADMIT Internal Medicine Cardiovascular Disease; ATTEND Internal Medicine Cardiovascular Disease
DX: A41.9 Sepsis, unspecified organism (principal); K65.9 Peritonitis, unspecified; N18.6 End stage renal disease; I50.43 Acute on chronic combined systolic (congestive) and diastolic (congestive) heart failure; I13.2 Hypertensive heart and chronic kidney disease with heart failure and with stage 5 chronic kidney disease, or end stage renal disease; D64.9 Anemia, unspecified; E11.22 Type 2 diabetes mellitus with diabetic chronic kidney disease; E11.43 Type 2 diabetes mellitus with diabetic autonomic (poly)neuropathy; I16.0 Hypertensive urgency; I25.10 Atherosclerotic heart disease of native coronary artery without angina pectoris; J44.9 Chronic obstructive pulmonary disease, unspecified; K29.70 Gastritis, unspecified, without bleeding; K31.84 Gastroparesis; E21.3 Hyperparathyroidism, unspecified; E79.0 Hyperuricemia without signs of inflammatory arthritis and tophaceous disease; K80.20 Calculus of gallbladder without cholecystitis without obstruction; Z79.02 Long term (current) use of antithrombotics/antiplatelets; Z79.899 Other long term (current) drug therapy; Z82.49 Family history of ischemic heart disease and other diseases of the circulatory system; I25.2 Old myocardial infarction; Z85.028 Personal history of other malignant neoplasm of stomach; Z95.1 Presence of aortocoronary bypass graft; Z99.2 Dependence on renal dialysis
CPT/HCPCS: 36415; 36600; 71045; 76604; 76705; 80053; 81001; 82306; 82805; 83605; 83690; 83880; 83970; 84100; 84484; 84550; 85025; 85610; 85730; 87040; 87086; 87205; 89051; 94640; G0378; J7060

== ENCOUNTER 2020-08-31 16:29 | Inpatient (IN) | payer OTHER ==
[~2020-08-31] VITALS: Ht 182.9 cm; Wt 81.4 kg
[~2020-08-31 16:29] MED LIST changes: -PANT40TA2 PO; -TEMA15CA91 PO
[2020-08-31 17:00] VITALS: BP 137/78
--- NOTE | 2020-08-31 17:00 | NUR ---
Direct Admit Note CHU OWENS admitted to [facility] unit as a direct admit per MD order. Patient oriented to KEYLA PYLE RN primary RN, unit, room, bed, and unit policies regarding patient care and visiting hours. Patient now on continuous bedside oxygen, weighed by bedscale and encouraged to call if they need something. All questions and concerns addressed, patient verbalized understanding. MD notified of patients arrival and admit orders received.
[2020-08-31] MEDS ORDERED: MELATONIN 10 MG PO PRN (18:15)
--- NOTE | 2020-08-31 19:30 | NUR ---
Opening Shift Note Assumed care of patient, awake and alert. No S/S of distress/SOB or pain. Instructed on POC and to call for assist PRN, will continue to monitor for changes Q1hr and PRN.
[2020-08-31 22:00] VITALS: BP 143/83
[2020-08-31] MEDS: METOCLOPRAMIDE HCL 5MG/ml INJ 2ml VIAL IV SCH (22:33)
[2020-08-31] MEDS: ATORVASTATIN 20 MG TAB PO SCH (22:34)
[2020-08-31] MEDS: ATENOLOL 25 MG TAB PO SCH (22:34)
[2020-08-31] MEDS: CALCIUM CARB 500 MG CHEW TAB PO SCH (22:35)
--- NOTE | 2020-09-01 01:48 | NUR ---
Patient complaining that he is very anxious. No anti-anxiety medication ordered at this time. . Awaiting for call back.
[2020-09-01] MEDS: HYDROcodone-ACET 10/325MG TAB PO PRN ×2 (02:51→21:50)
[2020-09-01] MEDS ORDERED: TEMA15CA91 PO (03:45)
[2020-09-01] MEDS ORDERED: PANT40TA2 PO (03:45)
[2020-09-01 05:00] VITALS: BP 143/78
[2020-09-01] MEDS: METOCLOPRAMIDE HCL 5MG/ml INJ 2ml VIAL IV SCH ×3 (06:38→21:49)
[2020-09-01] MEDS: ATENOLOL 25 MG TAB PO SCH ×3 (06:38→21:49)
[2020-09-01 08:00] VITALS: BP 150/72
[2020-09-01] MEDS: ALPRAZolam 0.5 MG TAB PO PRN (08:36)
[2020-09-01 08:51] VITALS: BP 150/72
[2020-09-01 09:13] LABS: INR 1.34 (0.9-1.15); Partial Thromboplastin Time 27.8 sec (23.0-31.2)
[2020-09-01] MEDS: CLOPIDOGREL BISULFATE 75 MG TAB PO SCH (10:00)
[2020-09-01] MEDS ORDERED: OMEPRAZOLE 40 MG PO SCH (10:00)
[2020-09-01] MEDS ORDERED: FUROSEMIDE 40 MG TAB PO SCH (10:00)
[2020-09-01] MEDS: Fluticasone-Umeclidinium-Vilan (Trelegy Ellipta 100-62.5-25 Mcg/I IN SCH (10:00)
[2020-09-01 10:26] LABS: Basophils # (auto) 0 10 ^3/uL (0-0.2); Basophils % (auto) 0.4 % (0.0-2.0); Eosinophils # (auto) 0.1 10 ^3/uL (0-0.8); Hematocrit 30.3 % (41.0-53.0); Hemoglobin 9.4 g/dL (13.5-17.5); Lymphocytes # (auto) 0.8 10 ^3/uL (0.4-5.4); Neutrophils # (auto) 6.6 10 ^3/uL (1.6-8.6); White Blood Cell 8.5 10^3/uL (4.4-10.8)
[2020-09-01] MEDS: DOCUSATE SOD 100 MG CAP PO SCH (10:26)
[2020-09-01] MEDS: ASPirin 81 mg TAB PO SCH (10:26)
[2020-09-01] MEDS: CALCIUM CARB 500 MG CHEW TAB PO SCH ×2 (10:27→21:50)
[2020-09-01] MEDS: CHOLECALCIFEROL (VITD3) 2,000 UNIT CAP PO SCH (10:27)
[2020-09-01] MEDS: PANTOPRAZOLE 40 MG TAB PO SCH (10:27)
[2020-09-01 10:28] LABS: Eosinophils % (auto) 1.2 % (0.0-7.0); Lymphocytes % (auto) 9.6 % (10.0-50.0); Mean Corpuscular Hemoglobin 23.7 pg (28.0-32.0); Mean Corpuscular Hgb Conc. 31.1 g/dL (32.0-36.0); Mean Corpuscular Volume 76.2 fL (80.0-100.0); Monocytes # (auto) 0.9 10 ^3/uL (0-1.3); Monocytes % (auto) 10.8 % (0.0-12.0); Platelet Count (auto) 212 10^3/uL (140-450); Red Blood Cells 3.97 10^6/uL (4.5-5.90); Red Cell Distribution Width 18.6 % (11.8-14.3)
[2020-09-01 10:38] LABS: Albumin 3.1 g/dL (3.4-5.0); Calcium 9.2 mg/dL (8.5-10.1); Potassium 5.3 mmol/L (3.5-5.1)
[2020-09-01 10:42] LABS: BUN/Creatinine Ratio 24.4; Bilirubin, Total 1.1 mg/dL (0.2-1.0); Phosphorus 4.8 mg/dL (2.5-4.90); Total Protein 6.9 g/dL (6.4-8.2)
--- NOTE | 2020-09-01 10:45 | NUR ---
CRITICAL BUN Paged Dr Redd to inform of BUN of 98
--- NOTE | 2020-09-01 12:10 | NUR ---
Informed Dr Redd of patients BUN. Orders already received for patient to restart his peritoneal dialysis today.
--- NOTE | 2020-09-01 12:30 | NUR ---
Informed sand miller that patient will be starting PD today. Per Charge, patient needs to be moved to single room for PD. Awaiting room to move patient.
[2020-09-01 13:00] VITALS: BP 148/81
[2020-09-01] MEDS ORDERED: PERITONEAL DIALYSIS 2.5% SOLN 2,000 ML IP SCH (14:00)
--- NOTE | 2020-09-01 14:45 | NUR ---
Patient transferred to room 206, report given to DAYANNA Palm. Patient moved with all personal belongings.
--- NOTE | 2020-09-01 14:50 | NUR ---
Nutrition Assessment/Consult Notes Please refer to link for full assessment notes. Est Energy needs: 2078-1349 kcals (20-25 kcal/kgBW) Est Protein needs: 107-134 gms/day (1.2-1.5 gm/kgBW) d/t pt with Peritoneal Dialysis Will continue to monitor and reassess prn. Addendum: 09/01/20 at [address] Amended: Links added.
--- NOTE | 2020-09-01 15:00 | NUR ---
Assuming Care Assuming care of patient at this time. Patient is awake and alert. Patient placed on bedside oxygen. No distress noted.
--- NOTE | 2020-09-01 15:09 | NUR ---
Spoke to Pharmacy, explained PD needs to be rescheduled. PD at 1400 was not done due to patient being in a room with another patient and PD requiring single room. Per pharmacy, times will be rescheduled.
[2020-09-01] MEDS: PERITONEAL DIALYSIS 2.5% SOLN 2,000 ML IP SCH ×2 (16:30→20:16)
--- NOTE | 2020-09-01 16:30 | NUR ---
Peritoneal Dialysis Peritoneal dialysis done on patient at this time. Total bag was infused, 2000 mL. Total weight prior to infusion was 2100 g.
[2020-09-01 17:00] VITALS: BP 147/99
[2020-09-01] MEDS ORDERED: EPOETIN ALFA 10,000 UNIT/1 ML VIAL SC ONE (17:30)
--- NOTE | 2020-09-01 19:02 | NUR ---
Closing Shift Note Patient resting in bed. No distress noted. Will give report and endorse care to the table games shift manager RN.
--- NOTE | 2020-09-01 20:15 | NUR ---
Peritoneal Dialysis Weight of fluid removed 2100 grams. 2000 grams infused.
[2020-09-01 22:00] VITALS: BP 117/51
[2020-09-01] MEDS: ATORVASTATIN 20 MG TAB PO SCH (22:00)
--- NOTE | 2020-09-01 23:00 | NUR ---
MD Diaz contacted New orders received for Lipitor (see eMar). Pt is reporting pain and SOB with the amount of peritoneal dialysis fluid being infused. MD Diaz told this RN to notify Nephrology. Will notify Nephrology
--- NOTE | 2020-09-02 00:30 | NUR ---
Peritoneal dialysis 2000 gm of fluid removed. 1000 ml of fluid infused. Pt unable to tolerate more than 1000 ml at this time
[2020-09-02] MEDS: PERITONEAL DIALYSIS 2.5% SOLN 2,000 ML IP SCH ×2 (00:39→04:45)
--- NOTE | 2020-09-02 04:30 | NUR ---
Peritoneal Dialysis 800 grams of fluid removed. 1000 ml of fluid infused
[2020-09-02 05:00] VITALS: BP 152/83
[2020-09-02 05:41] LABS: Eosinophils # (auto) 0.1 10 ^3/uL (0-0.8); Lymphocytes # (auto) 0.9 10 ^3/uL (0.4-5.4)
[2020-09-02 05:43] LABS: Basophils # (auto) 0.1 10 ^3/uL (0-0.2); Basophils % (auto) 0.7 % (0.0-2.0); Eosinophils % (auto) 0.9 % (0.0-7.0); Hematocrit 30.9 % (41.0-53.0); Hemoglobin 9.6 g/dL (13.5-17.5); Mean Corpuscular Hemoglobin 23.2 pg (28.0-32.0); Mean Corpuscular Volume 74.9 fL (80.0-100.0); Monocytes # (auto) 1.3 10 ^3/uL (0-1.3); Monocytes % (auto) 15.4 % (0.0-12.0); Nucleated Red Blood Cells % 0.1 %; Platelet Count (auto) 226 10^3/uL (140-450); Red Blood Cells 4.12 10^6/uL (4.5-5.90); Red Cell Distribution Width 18.7 % (11.8-14.3); White Blood Cell 8.3 10^3/uL (4.4-10.8)
[2020-09-02 06:02] LABS: Potassium 4.7 mmol/L (3.5-5.1)
[2020-09-02 06:15] LABS: BUN/Creatinine Ratio 24.1; Calcium 9.4 mg/dL (8.5-10.1); Magnesium 3.1 mg/dL (1.6-2.6); Phosphorus 4.9 mg/dL (2.5-4.90)
--- NOTE | 2020-09-02 06:27 | NUR ---
Critical Lab BUN 99. MD Diaz notified
[2020-09-02] MEDS: ATENOLOL 25 MG TAB PO SCH ×3 (06:36→22:47)
[2020-09-02] MEDS: METOCLOPRAMIDE HCL 5MG/ml INJ 2ml VIAL IV SCH ×3 (06:36→22:44)
--- NOTE | 2020-09-02 07:30 | NUR ---
Opening Shift Note Assumed care of patient, awake and alert. No S/S of distress or pain but c/o SOB with activity or even at rest. Instructed on POC and to call for assist PRN, will continue to monitor for changes Q1hr and PRN.
--- NOTE | 2020-09-02 07:35 | NUR ---
Call placed to MD Redd Regarding peritoneal dialysis and pts ability to tolerate the ordered amount of 2000 ml. Also notified of critical lab BUN 99. Endorsed this information to day shift RN Cheryl.
[2020-09-02 08:00] VITALS: BP 136/79
--- NOTE | 2020-09-02 08:00 | NUR ---
C/O UNABLE TO SLEEP DUE TO SOB ,DEMONSTRATED AND INSTRUCTED HOW TO SLEEP TRIPODING USING PILLOW AND BEDSIDE TABLE,VERBALIZED UNDERSTANDING.
[2020-09-02] MEDS: PERITONEAL DIALYSIS 2.5% IP SCH ×4 (09:06→23:41)
--- NOTE | 2020-09-02 09:06 | NUR ---
PD EXCHANGED DONE,DRAIN 800ML THEN DWELL 1000 ML (SEE I&O)
--- NOTE | 2020-09-02 09:40 | NUR ---
MD VISIT DR. VEE HERE TO SEE AND EXAMINED PATIENT,EXPLAIN PLAN OF CARE,PATIENT VERBALIZED UNDERSTANDING.
[2020-09-02] MEDS ORDERED: FUROSEMIDE 40 MG TAB PO SCH (10:00)
[2020-09-02] MEDS: CALCIUM CARB 500 MG CHEW TAB PO SCH ×2 (10:00→22:47)
[2020-09-02] MEDS ORDERED: FUROSEMIDE 100 MG/10ML VIAL IV SCH (10:30)
--- NOTE | 2020-09-02 10:30 | NUR ---
MD VISIT DR. AGRAWAL HERE TO SEE AND EXAMINED PATIENT,INFORMED PATIENT CAN NOT TOLERATE EXCHANGE OF 1 LITER RECEIVED ORDER TO DECREASED TO 750 AND GIVE LASIX 80 MG IVP
[2020-09-02] MEDS: DOCUSATE SOD 100 MG CAP PO SCH (10:37)
[2020-09-02] MEDS: PANTOPRAZOLE 40 MG TAB PO SCH (10:37)
[2020-09-02] MEDS: CLOPIDOGREL BISULFATE 75 MG TAB PO SCH (10:37)
[2020-09-02] MEDS: ASPirin 81 mg TAB PO SCH (10:37)
[2020-09-02] MEDS: Fluticasone-Umeclidinium-Vilan (Trelegy Ellipta 100-62.5-25 Mcg/I IN SCH (10:38)
--- NOTE | 2020-09-02 11:45 | NUR ---
PD FLUID SENT TO LAB FOR STUDY
[2020-09-02 12:30] VITALS: BP 143/82
[2020-09-02] MEDS: CHOLECALCIFEROL (VITD3) 2,000 UNIT CAP PO SCH (12:50)
--- NOTE | 2020-09-02 12:54 | NUR ---
PD EXCHANGED DONE,DRAIN 700ML THEN DWELL 750 ML (SEE I&O)
[2020-09-02 17:02] VITALS: BP 139/77
--- NOTE | 2020-09-02 17:46 | NUR ---
PD EXCHANGED DONE,DRAIN 500ML,THEN DWELL 750 ML (SEE I&O)
[2020-09-02] MEDS: HYDROcodone-ACET 10/325MG TAB PO PRN (20:07)
[2020-09-02 22:00] VITALS: BP 144/70
[2020-09-02] MEDS: ATORVASTATIN 20 MG TAB PO SCH (22:44)
--- NOTE | 2020-09-02 23:41 | NUR ---
PD EXCHANGED COMPLETED PER ORDERS ,DRAINED 500ML. INFUSED 750 ML (SEE I&O)
--- NOTE | 2020-09-03 03:30 | NUR ---
PD EXCHANGED COMPLETED PER ORDERS ,DRAINED 500ML. INFUSED 750 ML (SEE I&O)
[2020-09-03] MEDS: PERITONEAL DIALYSIS 2.5% IP SCH ×6 (03:31→21:00)
[2020-09-03 05:00] VITALS: BP 125/84
[2020-09-03 05:32] LABS: Basophils # (auto) 0 10 ^3/uL (0-0.2); Basophils % (auto) 0.5 % (0.0-2.0); Eosinophils # (auto) 0.2 10 ^3/uL (0-0.8); Eosinophils % (auto) 3.1 % (0.0-7.0); Hematocrit 29.9 % (41.0-53.0); Hemoglobin 9.2 g/dL (13.5-17.5); Lymphocytes # (auto) 0.8 10 ^3/uL (0.4-5.4); Mean Corpuscular Hemoglobin 23.3 pg (28.0-32.0); Mean Corpuscular Hgb Conc. 30.8 g/dL (32.0-36.0); Mean Corpuscular Volume 75.9 fL (80.0-100.0); Monocytes # (auto) 0.8 10 ^3/uL (0-1.3); Monocytes % (auto) 11.9 % (0.0-12.0); Neutrophils # (auto) 5.1 10 ^3/uL (1.6-8.6); Neutrophils % (auto) 73.5 % (37.0-80.0); Nucleated Red Blood Cells % 0.1 %; Platelet Count (auto) 201 10^3/uL (140-450); Red Blood Cells 3.95 10^6/uL (4.5-5.90); Red Cell Distribution Width 19.1 % (11.8-14.3)
[2020-09-03 05:47] LABS: Calcium 8.9 mg/dL (8.5-10.1); Potassium 4.1 mmol/L (3.5-5.1)
[2020-09-03 05:50] LABS: BUN/Creatinine Ratio 22.1
[2020-09-03] MEDS: ATENOLOL 25 MG TAB PO SCH ×3 (06:20→21:50)
[2020-09-03] MEDS: METOCLOPRAMIDE HCL 5MG/ml INJ 2ml VIAL IV SCH ×3 (06:20→21:51)
--- NOTE | 2020-09-03 06:51 | NUR ---
PAGE TO SENT WITH CALL BACK INFORMATION PROVIDED. 0600 PD HELD AT THIS TIME.
--- NOTE | 2020-09-03 07:30 | NUR ---
PD EXCHANGE COMPLETED PER ORDERS ,DRAINED 400ML STRAW COLORED FLUID. PATIENT REFUSED INFUSION OF PD FLUID THIS AM. DAY SHIFT NURSE INFORMED. (SEE I&O)
--- NOTE | 2020-09-03 07:30 | NUR ---
Opening Shift Note Assumed care of patient. Awake, alert and oriented x4. No S/S of distress/SOB or pain. Pt is on 4L NC with even and unlabored respirations. Instructed on POC and to call for assist PRN. Bed locked, in lowest position, call light within reach, side rails up x2. Will continue to monitor for changes Q1hr and PRN.
[2020-09-03 09:00] VITALS: BP 128/91
--- NOTE | 2020-09-03 09:54 | NUR ---
C/O SOB,REQUESTING FOR MED NEB TX.PAGED AND INFORMED DR. MONROE,RECEIVED ORDER FOR MED NEB TX.SEE ORDER WRITTEN.
[2020-09-03] MEDS ORDERED: FUROSEMIDE 100 MG/10ML VIAL IV SCH (10:00)
[2020-09-03] MEDS: Fluticasone-Umeclidinium-Vilan (Trelegy Ellipta 100-62.5-25 Mcg/I IN SCH (10:00)
--- NOTE | 2020-09-03 10:00 | NUR ---
PD EXCHANGED DONE,NOTHING DRAIN SINCE PATIENT REFUSED EXCHANGED AT 0600 PER REPORT, DWELL 750 ML
--- NOTE | 2020-09-03 10:00 | NUR ---
REQUESTED PATIENT TO INFORM FAMILY TO BRING HIS OWN HOME MEDICATION ELLIPTA AND ZETIA,VERBALIZED UNDERSTANDING.
[2020-09-03] MEDS: PANTOPRAZOLE 40 MG TAB PO SCH (10:12)
[2020-09-03] MEDS: CLOPIDOGREL BISULFATE 75 MG TAB PO SCH (10:12)
[2020-09-03] MEDS: DOCUSATE SOD 100 MG CAP PO SCH (10:12)
[2020-09-03] MEDS: ASPirin 81 mg TAB PO SCH (10:12)
[2020-09-03] MEDS: CALCIUM CARB 500 MG CHEW TAB PO SCH ×2 (10:14→21:51)
[2020-09-03 10:30] VITALS: BP 128/91
[2020-09-03] MEDS: IPRATROPIUM BROM 0.5 MG/2.5ML INH SOL NEB SCH ×3 (11:56→18:00)
[2020-09-03] MEDS: LEVALBUTEROL HCL 1.25 MG/3 ML NEB NEB SCH ×3 (11:56→18:00)
[2020-09-03] MEDS: CHOLECALCIFEROL (VITD3) 2,000 UNIT CAP PO SCH (12:44)
[2020-09-03 13:00] VITALS: BP 147/72
--- NOTE | 2020-09-03 13:31 | NUR ---
OBTAINED ORDER FOR CT GUIDED THORACENTESIS - PATIENT CURRENTLY ON PLAVIX - PER PROTOCOL, THORACENTESIS CANNOT BE DONE UNTIL PATIENT HAS BEEN OFF OF PLAVIX FOR 5 DAYS - VERIFIED WITH RADIOLOGIST CURRENTLY PRESENT, DAYANNA AMBROSIO NOTIFIED.
--- NOTE | 2020-09-03 14:12 | NUR ---
MAURICIO FROM RADIOLOGY CALLED,STATED PATIENT ON PLAVIX AND NEED TO BE OFF FOR 5 DAYS FOR THORACENTESIS.
--- NOTE | 2020-09-03 14:17 | NUR ---
MD VISIT HERE TO SEE AND EXAMINED PATIENT,RECEIVED ORDER TO DWELL THE 1400 EXCHANGE FOR 3 HOURS,THEN DRAIN THEN CALL RESULT.
--- NOTE | 2020-09-03 14:20 | NUR ---
NOTIFIED DR. MONROE INFORMED OF PATIENT NEEDING TO BE OFF PLAVIX FOR 5 DAYS PER RADIOLOGY TOP DO THORACENTESIS,RECEIVED ORDER TO SET UP THORACENTESIS IN BLEND PLANT OPERATOR TOMORROW AT 0800.
--- NOTE | 2020-09-03 15:10 | NUR ---
PATIENT REQUESTED TO SIGN AMA TO GO DOWN TO MAIN LOBBY TO MEET HIS ,EXPLAIN THER RISK OR INJURY AND DELAYED TREATMENTS THAT MAY ARISE WHILE OUT.PATIENT VERBALIZED UNDERSTANDING.
[2020-09-03 17:00] VITALS: BP 138/80
--- NOTE | 2020-09-03 17:08 | NUR ---
CALLED DR. AGRAWAL CALLED RECEIVED ORDER TO CHANGE EXCHANGE TO 4.25% 750ML AND DWELL FOR 3 HOURS AND CALL RESULT
[2020-09-03] MEDS ORDERED: PERITONEAL DIALYSIS 4.25% IP ONE (17:15)
[2020-09-03] MEDS ORDERED: PERITONEAL DIALYSIS 2.5% IP SCH (20:00)
--- NOTE | 2020-09-03 20:40 | NUR ---
PAGE TO SENT WITH CALL BACK INFORMATION PROVIDED. CALLING TO REPORT DIALYSIS DRAINAGE TOTAL PER ORDERS.
--- NOTE | 2020-09-03 20:58 | NUR ---
RETURNS PAGE REPORTED PATIENTS PD OUTPUT OF 800ML. NEW ORDERS RECEIVED TO CONTINUE 750ML OF 2.5% DIALYSIS SOLUTION Q3H NEXT DOSE TO BEGIN AT 2100.ORDER READ BACK AND VERIFIED.
--- NOTE | 2020-09-03 21:00 | NUR ---
PD EXCHANGE COMPLETED PER ORDERS ,DRAINED 850ML STRAW COLORED FLUID. INFUSED 750ML OF PD FLUID ORDERED. PATIENT TOLERATED WELL.
[2020-09-03] MEDS: SENNA 8.6 MG TAB PO SCH (21:49)
[2020-09-03] MEDS: LACTULOSE 20Gm/30ML SOLN PO SCH (21:49)
[2020-09-03] MEDS: ATORVASTATIN 20 MG TAB PO SCH (21:50)
[2020-09-03] MEDS: FUROSEMIDE 100 MG/10ML VIAL IV SCH (21:51)
[2020-09-03 22:00] VITALS: BP 147/87
--- NOTE | 2020-09-04 | NUR ---
PD EXCHANGE COMPLETED PER ORDERS ,DRAINED 500ML STRAW COLORED FLUID. INFUSED 750ML OF PD FLUID ORDERED. PATIENT TOLERATED WELL.
[2020-09-04] MEDS: PERITONEAL DIALYSIS 2.5% IP SCH ×7 (00:05→22:57)
[2020-09-04] MEDS: IPRATROPIUM BROM 0.5 MG/2.5ML INH SOL NEB SCH ×5 (00:11→23:49)
[2020-09-04] MEDS: LEVALBUTEROL HCL 1.25 MG/3 ML NEB NEB SCH ×5 (00:11→23:49)
[2020-09-04] MEDS: ALPRAZolam 0.5 MG TAB PO PRN ×2 (00:14→23:07)
--- NOTE | 2020-09-04 03:00 | NUR ---
PD EXCHANGE COMPLETED PER ORDERS ,DRAINED 400 ML STRAW COLORED FLUID. INFUSED 750ML OF PD FLUID ORDERED. PATIENT TOLERATED WELL.
[2020-09-04] MEDS: HYDROcodone-ACET 10/325MG TAB PO PRN ×2 (04:55→16:09)
[2020-09-04 05:00] VITALS: BP 149/80
[2020-09-04] MEDS: FUROSEMIDE 100 MG/10ML VIAL IV SCH ×2 (06:00→18:44)
--- NOTE | 2020-09-04 06:00 | NUR ---
PER DR. MONROE CONTINUE WITH 0600 PD EXCHANGE SCHEDULED. DO NOT HOLD BEFORE PROCEDURE.
[2020-09-04] MEDS: METOCLOPRAMIDE HCL 5MG/ml INJ 2ml VIAL IV SCH ×3 (06:04→22:28)
[2020-09-04] MEDS: ATENOLOL 25 MG TAB PO SCH ×3 (06:04→22:29)
--- NOTE | 2020-09-04 06:30 | NUR ---
PD EXCHANGE COMPLETED PER ORDERS ,DRAINED 400ML STRAW COLORED FLUID. INFUSED 750ML OF PD FLUID ORDERED.
[2020-09-04 06:35] LABS: Basophils # (auto) 0 10 ^3/uL (0-0.2); Basophils % (auto) 0.7 % (0.0-2.0); Eosinophils # (auto) 0.2 10 ^3/uL (0-0.8); Hemoglobin 8.5 g/dL (13.5-17.5); Neutrophils # (auto) 4.5 10 ^3/uL (1.6-8.6); Nucleated Red Blood Cells % 0.1 %
[2020-09-04 06:38] LABS: Urine Bacteria FEW /hpf (None Seen); Urine Blood Negative /uL (Negative); Urine Specific Gravity 1.009 (1.001-1.035); Urine WBC <1 /hpf (0 - 3)
[2020-09-04 06:40] LABS: INR 1.27 (0.9-1.15); Partial Thromboplastin Time 30.1 sec (23.0-31.2)
[2020-09-04 06:41] LABS: Calcium 8.8 mg/dL (8.5-10.1); Potassium 3.2 mmol/L (3.5-5.1)
[2020-09-04 06:42] LABS: Eosinophils % (auto) 2.6 % (0.0-7.0); Hematocrit 26.1 % (41.0-53.0); Lymphocytes # (auto) 0.8 10 ^3/uL (0.4-5.4); Lymphocytes % (auto) 12.3 % (10.0-50.0); Mean Corpuscular Hemoglobin 23.8 pg (28.0-32.0); Mean Corpuscular Hgb Conc. 32.4 g/dL (32.0-36.0); Mean Corpuscular Volume 73.5 fL (80.0-100.0); Monocytes % (auto) 14.9 % (0.0-12.0); Neutrophils % (auto) 69.5 % (37.0-80.0); Platelet Count (auto) 196 10^3/uL (140-450); Red Blood Cells 3.55 10^6/uL (4.5-5.90); Red Cell Distribution Width 18.6 % (11.8-14.3); White Blood Cell 6.4 10^3/uL (4.4-10.8)
[2020-09-04 06:45] LABS: BUN/Creatinine Ratio 22.7
--- NOTE | 2020-09-04 06:45 | NUR ---
CHG BATH PROVIDED TO PATIENT. TOTAL LINEN CHANGE AND NEW GOWN PROVIDED TO PATIENT.
--- NOTE | 2020-09-04 07:10 | NUR ---
ASSESSMENT COUNSELOR PATIENT TAKEN DOWN TO ASSESSMENT COUNSELOR VIA HOSPITAL BED FOR THORACENTESIS. NO S/S OF DISTRESS UPON TRANSPORT.
--- NOTE | 2020-09-04 07:10 | NUR ---
Opening Shift Note Received report from white sugar supervisor nurse, assumed care of patient, awake and alert. Patient prepared and transported to chemical processing laborer for procedure. No S/S of distress/SOB or pain.
--- NOTE | 2020-09-04 08:30 | NUR ---
PATIENT OFF UNIT PATIENT IN SIGN OUT CLERK FOR SCHEDULED THORACENTESIS PROCEDURE. Addendum: 09/04/20 at 1147 by RODERICK NORRIS RN RN Amended: Links added.
--- NOTE | 2020-09-04 09:00 | NUR ---
RE: Scheduled Peritoneal dialysis Patient off unit at scheduled procedure.
[2020-09-04] MEDS: CHOLECALCIFEROL (VITD3) 2,000 UNIT CAP PO SCH (10:00)
[2020-09-04] MEDS: Fluticasone-Umeclidinium-Vilan (Trelegy Ellipta 100-62.5-25 Mcg/I IN SCH (10:00)
--- NOTE | 2020-09-04 10:00 | NUR ---
Patient back from lab technologist Received report on patient from paint laboratory technician, patient urine output 300 ml. VS 70 heart rate, 142/86, 92% oxygen saturation, 16 respiration. No complaints of pain, sob. Nasal cannula in place 4L.
--- NOTE | 2020-09-04 11:06 | NUR ---
Output dwelling dialysate - 350 ml clear yellow output Patient repositioned several times during draining process. Input dialysate - 750 ml per MD order. Patient tolerated well. Exchange performed with aseptic technique. Call light within reach. No distress noted.
[2020-09-04] MEDS: CALCIUM CARB 500 MG CHEW TAB PO SCH ×2 (11:54→22:00)
[2020-09-04] MEDS: DOCUSATE SOD 100 MG CAP PO SCH (12:58)
[2020-09-04] MEDS: PANTOPRAZOLE 40 MG TAB PO SCH (12:59)
[2020-09-04] MEDS: ASPirin 81 mg TAB PO SCH (12:59)
[2020-09-04] MEDS: CLOPIDOGREL BISULFATE 75 MG TAB PO SCH (12:59)
[2020-09-04 13:00] VITALS: BP 154/70
--- NOTE | 2020-09-04 15:20 | NUR ---
Dwelling dialysate draining Patient sitting at side of bed with no distress noted.
--- NOTE | 2020-09-04 15:45 | NUR ---
Output dwelling dialysate - 300 ml clear yellow output Patient repositioned several times during draining process. Input dialysate - 750 ml per MD order. Patient tolerated well. Exchange performed with aseptic technique. Call light within reach. No distress noted.
--- NOTE | 2020-09-04 15:49 | NUR ---
RE: Reglan Medication not available. Contacted pharmacy to notify. Medication to be sent to the unit per pharmacist.
[2020-09-04 16:43] VITALS: BP 143/77
--- NOTE | 2020-09-04 18:50 | NUR ---
Dwelling dialysate draining Patient sitting at side of bed with no distress noted.
--- NOTE | 2020-09-04 19:09 | NUR ---
Care endorsed to DAYANNA Matute.
--- NOTE | 2020-09-04 19:38 | NUR ---
RE: Peritoneal Patient continues to drain dialysate. 200ml of clear yellow liquid in catheter bag. Patient instructed to change position to encourage output of fluid. Patient verbalized understanding. Input of Peritoneal dialysate endorsed to DAYANNA Matute.
--- NOTE | 2020-09-04 19:54 | NUR ---
PD EXCHANGE COMPLETED PER ORDERS ,DRAINED 400ML STRAW COLORED FLUID. INFUSED 900ML OF PD FLUID ORDERED.
[2020-09-04 22:00] VITALS: BP 133/70
[2020-09-04] MEDS: LACTULOSE 20Gm/30ML SOLN PO SCH (22:28)
[2020-09-04] MEDS: SENNA 8.6 MG TAB PO SCH (22:28)
[2020-09-04] MEDS: ATORVASTATIN 20 MG TAB PO SCH (22:28)
--- NOTE | 2020-09-04 22:57 | NUR ---
PD EXCHANGE COMPLETED PER ORDERS ,DRAINED 650ML STRAW COLORED FLUID. INFUSED 900ML OF PD FLUID ORDERED. PATIENT TOLERATED WELL.
[2020-09-05] MEDS: PERITONEAL DIALYSIS 2.5% IP SCH ×6 (02:01→20:10)
--- NOTE | 2020-09-05 02:01 | NUR ---
PD EXCHANGE COMPLETED PER ORDERS ,DRAINED 700ML STRAW COLORED FLUID. INFUSED 900ML OF PD FLUID ORDERED. PATIENT TOLERATED WELL.
[2020-09-05] MEDS: HYDROcodone-ACET 10/325MG TAB PO PRN (02:45)
[2020-09-05 05:00] VITALS: BP_SYST 143; BP_SYST 96; BP_DIAS 48; BP_DIAS 75
--- NOTE | 2020-09-05 05:23 | NUR ---
PD EXCHANGE COMPLETED PER ORDERS ,DRAINED 700ML STRAW COLORED FLUID. INFUSED 900ML OF PD FLUID ORDERED. PATIENT TOLERATED WELL.
[2020-09-05] MEDS: ATENOLOL 25 MG TAB PO SCH ×3 (05:38→22:04)
[2020-09-05] MEDS: METOCLOPRAMIDE HCL 5MG/ml INJ 2ml VIAL IV SCH ×3 (05:38→22:02)
[2020-09-05] MEDS: FUROSEMIDE 100 MG/10ML VIAL IV SCH (05:38)
[2020-09-05] MEDS: LEVALBUTEROL HCL 1.25 MG/3 ML NEB NEB SCH ×3 (06:04→18:34)
[2020-09-05] MEDS: IPRATROPIUM BROM 0.5 MG/2.5ML INH SOL NEB SCH ×3 (06:05→18:34)
[2020-09-05 06:08] LABS: Basophils # (auto) 0 10 ^3/uL (0-0.2); Eosinophils # (auto) 0.3 10 ^3/uL (0-0.8); Monocytes # (auto) 0.9 10 ^3/uL (0-1.3); Nucleated Red Blood Cells % 0.1 %
[2020-09-05 06:09] LABS: Basophils % (auto) 0.6 % (0.0-2.0); Eosinophils % (auto) 4.3 % (0.0-7.0); Hematocrit 27.4 % (41.0-53.0); Hemoglobin 8.7 g/dL (13.5-17.5); Lymphocytes # (auto) 0.6 10 ^3/uL (0.4-5.4); Lymphocytes % (auto) 9.8 % (10.0-50.0); Mean Corpuscular Hemoglobin 23.5 pg (28.0-32.0); Mean Corpuscular Hgb Conc. 31.6 g/dL (32.0-36.0); Mean Corpuscular Volume 74.3 fL (80.0-100.0); Monocytes % (auto) 15.2 % (0.0-12.0); Neutrophils # (auto) 4.2 10 ^3/uL (1.6-8.6); Neutrophils % (auto) 70.1 % (37.0-80.0); Platelet Count (auto) 192 10^3/uL (140-450); Red Blood Cells 3.69 10^6/uL (4.5-5.90); Red Cell Distribution Width 18.4 % (11.8-14.3)
[2020-09-05 06:27] LABS: Potassium 3.3 mmol/L (3.5-5.1)
[2020-09-05 06:32] LABS: BUN/Creatinine Ratio 21.6; Calcium 8.6 mg/dL (8.5-10.1)
--- NOTE | 2020-09-05 07:30 | NUR ---
Morning note Patient resting in bed with even and unlabored respirations, no distress noted. Instructed patient on POC, fall precautions, and to call for assistance. Patient verbalized understanding.
--- NOTE | 2020-09-05 07:56 | NUR ---
RE: Potassium Contacted Dr. Diaz to notify MD of recent Potassium level. MD verbalized understanding. Order received and read back to verify.
[2020-09-05 08:59] VITALS: BP 147/76
[2020-09-05] MEDS ORDERED: POTASSIUM CHL 20 Meq TABLET PO ONE (09:00)
--- NOTE | 2020-09-05 09:40 | NUR ---
Dwelling dialysate draining Patient sitting at side of bed with no distress noted.
[2020-09-05] MEDS: DOCUSATE SOD 100 MG CAP PO SCH (09:43)
[2020-09-05] MEDS: ASPirin 81 mg TAB PO SCH (09:43)
[2020-09-05] MEDS: CALCIUM CARB 500 MG CHEW TAB PO SCH ×2 (09:43→22:04)
[2020-09-05] MEDS: CLOPIDOGREL BISULFATE 75 MG TAB PO SCH (09:43)
[2020-09-05] MEDS: Fluticasone-Umeclidinium-Vilan (Trelegy Ellipta 100-62.5-25 Mcg/I IN SCH (10:00)
[2020-09-05] MEDS: CHOLECALCIFEROL (VITD3) 2,000 UNIT CAP PO SCH (10:00)
[2020-09-05] MEDS: PANTOPRAZOLE 40 MG TAB PO SCH (10:02)
--- NOTE | 2020-09-05 10:05 | NUR ---
Dwelling dialysate draining completed - 950 ml of clear yellow output Patient sitting at side of bed with no distress noted.
--- NOTE | 2020-09-05 10:18 | NUR ---
Infusion of 900 ml of PD fluid completed per MD order. Patient tolerating well. No c/o pain or discomfort. Exchange performed with aseptic technique.
--- NOTE | 2020-09-05 10:47 | NUR ---
Nutrition Followup Notes Pt wt is 86.7 kg Pt was seen yesterday, was awake and alert. Did not execute F/U notes d/t pt was scheduled to be discharged yesterday after PD, but pt was still here today. Pt is with a Cardiac diet, appetite is good aeb 75% PO intake over 3 meals per RN doc. Pt stated he manages his renal disease with medications and PD, not interested in diet education or information. Est Energy needs: 4395-4320 kcals (20-25 kcal/kgBW) Est Protein needs: 107-134 gms/day (1.2-1.5 gm/kgBW) d/t pt with Peritoneal Dialysis Will continue to monitor and reassess prn. LABS: K 3.3 L, BUN 76 H, CREAT 3.52 H, GFR 19 L, GLUC 112 H, ALB 3.1 L, BILI 1.1 H, AST 125 H, ALT 105 H GI: Pt had 1 BM on 09/05 per RN doc. BS: 20 low risk. Refer to wound assessment report for further details. PES: Altered nutrition related lab values r/t current/chronic medical condition aeb elev RFTs, low GFR, hyperglycemia, hypoalbuminemia Comments Will continue to monitor PO status, skin status, pertinent labs and weight trends. Will f/u in 3-5 days 1) Continue to closely monitor pt PO intake to meet at least 75% of meals 2) Consider a Renal Standard Diet 3) Continue current plan of care
[2020-09-05 11:51] VITALS: BP 145/71
--- NOTE | 2020-09-05 13:10 | NUR ---
Dwelling dialysate draining Patient sitting at side of bed with no distress noted.
--- NOTE | 2020-09-05 13:24 | NUR ---
Dwelling dialysate draining completed - 900 ml of clear yellow output Patient sitting at side of bed with no distress noted.
--- NOTE | 2020-09-05 13:30 | NUR ---
Infusion of 900 ml of PD fluid completed per MD order. Patient tolerating well. No c/o pain or discomfort. Exchange performed with aseptic technique.
--- NOTE | 2020-09-05 14:35 | NUR ---
POC discussed with Dr. Redd Order received and read back to verify.
--- NOTE | 2020-09-05 14:59 | NUR ---
RE: Scheduled medication Medication not available. Contacted pharmacy to notify. Medication to be sent to unit per pharmacy.
[2020-09-05] MEDS: FUROSEMIDE INJECTION 100 MG in SODIUM CHL 0.9% 100 ML IV SCH ×3 (15:44→22:01)
--- NOTE | 2020-09-05 16:30 | NUR ---
IV discontinued/IV started IV discontinued to the RWR d/t leaking. Catheter intact. Dressing applied. Patient tolerated well, no trauma to site. 20g IV started with aseptic technique to the RFA. IV secured. IV education provided. patient verbalized understanding. Bed in lowest locked position with call light within reach.
[2020-09-05 16:47] VITALS: BP 140/67
--- NOTE | 2020-09-05 16:50 | NUR ---
Dwelling dialysate draining Patient sitting at side of bed with no distress noted.
--- NOTE | 2020-09-05 17:10 | NUR ---
Dwelling dialysate draining completed - 1150 ml of clear yellow output Patient sitting at side of bed with no distress noted.
--- NOTE | 2020-09-05 17:25 | NUR ---
Infusion of 950 ml of PD fluid completed per MD order. Patient tolerating well. No c/o pain or discomfort. Exchange performed with aseptic technique.
--- NOTE | 2020-09-05 18:47 | NUR ---
Closing note patient resting in bed with even and unlabored respirations, no distress noted. IV Lasix infusing per MD order. PD fluid dwelling per MD order. Patient tolerating well. Fall precautions in place with call light within reach.
--- NOTE | 2020-09-05 19:25 | NUR ---
Care endorsed to DAYANNA Sarmiento.
--- NOTE | 2020-09-05 20:25 | NUR ---
Dwelling dialysate draining completed - 1200 ml of clear pale yellow output Patient was sitting at side of bed. Tolerated well.
--- NOTE | 2020-09-05 20:45 | NUR ---
Infusion of 950 ml of PD fluid completed per MD order. Patient tolerating well. No c/o pain or discomfort. Exchange performed with aseptic technique.
[2020-09-05] MEDS: ATORVASTATIN 20 MG TAB PO SCH (22:02)
[2020-09-05] MEDS: LACTULOSE 20Gm/30ML SOLN PO SCH (22:02)
[2020-09-05] MEDS: SENNA 8.6 MG TAB PO SCH (22:02)
[2020-09-05 22:15] VITALS: BP 150/67
--- NOTE | 2020-09-05 22:40 | NUR ---
Care of the patient endorsed to DAYANNA Sam.
--- NOTE | 2020-09-05 23:00 | NUR ---
Received report and assumed care of pt at this time. Pt is sitting up on the side of the bed and POC discussed with pt at this time. Pt is alert and oriented x4, resp rate is even and unlabored, O2 by nc , lung sounds are diminished in upper and lower left lung lobes and clear in upper and lower right lobes. Peritoneal dialysis port in left lower abd quad and is with a gauze drsg hat is cdi. Pt is with 3+ pitting pedal edema on the right and 4+ pedal edema on the left. Encouraged pt to elevate feet and pt refuses. States that it doesn't matter. Bed is low, wheels are locked, and call light is with in reach.
--- NOTE | 2020-09-06 00:35 | NUR ---
PERITONEAL DIALYSIS DRAINAGE IS 850MLS CLEAR YELLOW URINE AND 950MLS PERITONEAL DIALYSIS SOLN 2.5% IN AT THIS TIME. PT LANIE WELL.
[2020-09-06] MEDS: LEVALBUTEROL HCL 1.25 MG/3 ML NEB NEB SCH ×4 (00:54→19:00)
[2020-09-06] MEDS: IPRATROPIUM BROM 0.5 MG/2.5ML INH SOL NEB SCH ×4 (00:54→19:00)
--- NOTE | 2020-09-06 01:00 | NUR ---
PERITONEAL DIALYSIS SOLN 2.5% NOT AVAILABLE FOR 0300 AND 0600 AND SENIOR POLICY ANALYST AND HOUSE SUP NOTIFIED.
--- NOTE | 2020-09-06 01:59 | NUR ---
PHARMACY CALL PLACED TO PHARMACIST NO ANSWER WILL TRY BACK AGAIN
[2020-09-06] MEDS: FUROSEMIDE INJECTION 100 MG in SODIUM CHL 0.9% 100 ML IV SCH ×7 (02:49→21:54)
[2020-09-06] MEDS: PERITONEAL DIALYSIS 2.5% IP SCH ×7 (03:00→17:43)
--- NOTE | 2020-09-06 03:21 | NUR ---
PT INSIST ON BEING DISCONNECTED FROM [facility] SO THAT HE MAY AMB HALLS. PT AMB HALLS NOW.
[2020-09-06 05:00] VITALS: BP 128/75
[2020-09-06 05:53] LABS: Potassium 3.7 mmol/L (3.5-5.1)
[2020-09-06 06:00] LABS: BUN/Creatinine Ratio 18.7; Calcium 8.7 mg/dL (8.5-10.1)
[2020-09-06] MEDS: METOCLOPRAMIDE HCL 5MG/ml INJ 2ml VIAL IV SCH ×3 (06:53→21:07)
[2020-09-06] MEDS: ATENOLOL 25 MG TAB PO SCH ×3 (06:54→21:07)
[2020-09-06 08:20] VITALS: BP 142/57
[2020-09-06] MEDS: CLOPIDOGREL BISULFATE 75 MG TAB PO SCH (08:59)
[2020-09-06] MEDS: ASPirin 81 mg TAB PO SCH (08:59)
[2020-09-06] MEDS: DOCUSATE SOD 100 MG CAP PO SCH (08:59)
[2020-09-06] MEDS: PANTOPRAZOLE 40 MG TAB PO SCH (08:59)
[2020-09-06] MEDS: CALCIUM CARB 500 MG CHEW TAB PO SCH ×2 (09:00→21:06)
[2020-09-06] MEDS: Fluticasone-Umeclidinium-Vilan (Trelegy Ellipta 100-62.5-25 Mcg/I IN SCH (09:00)
--- NOTE | 2020-09-06 09:03 | NUR ---
PD exchanged per MD order, Drained about 900 ml with light clear yellow, infused 900 ml.
[2020-09-06 09:28] VITALS: BP 142/57
[2020-09-06] MEDS: CHOLECALCIFEROL (VITD3) 1,000UNIT=25mCg TAB PO SCH (11:34)
--- NOTE | 2020-09-06 12:00 | NUR ---
PD exchanged per MD order, Drained about 900 ml with light clear yellow, infused 1000 ml.
--- NOTE | 2020-09-06 12:20 | NUR ---
Respiratory note: PT REFUSED MED NEB TX AT THIS TIME. PT STATED HE'S IN THE MIDDLE OF PERITONEAL DIALYSIS, AND WOULD LIKE TO SKIP THIS TX. PT AWARE TO PAGE RT IF HE CHANGES HIS MIND.
[2020-09-06 13:19] VITALS: BP 143/64
--- NOTE | 2020-09-06 15:00 | NUR ---
PD exchanged per MD order, Drained about 1000 ml with light clear yellow, infused 950 ml.
[2020-09-06] MEDS: HYDROcodone-ACET 10/325MG TAB PO PRN (15:46)
[2020-09-06 16:46] VITALS: BP 138/74
--- NOTE | 2020-09-06 18:38 | NUR ---
PD exchanged per MD order, infused 1000 ml.
--- NOTE | 2020-09-06 19:03 | NUR ---
AT BEDSIDE FOR MED NEB TX. POX 95-97% ON 3.5LPM NC. RR 16-20, HR 70S. PT HAS PRODUCTIVE COUGH, PT BRINGING UP SOME PHLEGM [place]/BROWN IN COLOR, SECRETIONS. WILL CONTINUE TO MONITOR.
--- NOTE | 2020-09-06 19:05 | NUR ---
Opening Shift Note Assumed care of patient, awake and alert. Patient on 4L N/C oxygen saturation 96% with no S/S of distress/SOB or pain. PD access LLQ dressing clean and intact. Bed locked in lowest position, side rails up x2, call light within reach. Instructed on POC and to call for assist PRN, will continue to monitor for changes Q1hr and PRN.
[2020-09-06 20:00] VITALS: BP 138/74
--- NOTE | 2020-09-06 21:00 | NUR ---
PERITONEAL DIALYSIS DRAINAGE IS 830MLS CLEAR YELLOW URINE AND 1000MLS PERITONEAL DIALYSIS SOLN 2.5% IN AT THIS TIME. PT TOLERATED WELL
[2020-09-06] MEDS: SENNA 8.6 MG TAB PO SCH (21:06)
[2020-09-06] MEDS: LACTULOSE 20Gm/30ML SOLN PO SCH (21:07)
[2020-09-06] MEDS: ATORVASTATIN 20 MG TAB PO SCH (21:07)
--- NOTE | 2020-09-07 | NUR ---
PERITONEAL DIALYSIS DRAINAGE IS 900MLS CLEAR YELLOW URINE AND 700 MLS PERITONEAL DIALYSIS SOLN 2.5% IN AT THIS TIME. PATIENT TOLERATED WELL
[2020-09-07] MEDS: LEVALBUTEROL HCL 1.25 MG/3 ML NEB NEB SCH ×3 (00:41→12:24)
[2020-09-07] MEDS: IPRATROPIUM BROM 0.5 MG/2.5ML INH SOL NEB SCH ×3 (00:41→12:24)
--- NOTE | 2020-09-07 00:43 | NUR ---
AT BEDSIDE FOR MED MILADY PETTY.
[2020-09-07] MEDS: FUROSEMIDE INJECTION 100 MG in SODIUM CHL 0.9% 100 ML IV SCH ×5 (00:52→13:25)
--- NOTE | 2020-09-07 03:00 | NUR ---
PERITONEAL DIALYSIS DRAINAGE IS 1000MLS CLEAR YELLOW URINE AND 1000 MLS PERITONEAL DIALYSIS SOLN 2.5% DWELLING IN AT THIS TIME. PATIENT TOLERATED WELL
[2020-09-07] MEDS: PERITONEAL DIALYSIS 2.5% IP SCH ×5 (03:28→12:17)
[2020-09-07] MEDS: ATENOLOL 25 MG TAB PO SCH ×2 (05:13→14:00)
[2020-09-07] MEDS: METOCLOPRAMIDE HCL 5MG/ml INJ 2ml VIAL IV SCH ×2 (05:14→14:00)
[2020-09-07 05:20] VITALS: BP 145/81
--- NOTE | 2020-09-07 05:56 | NUR ---
PERITONEAL DIALYSIS DRAINAGE IS 1000MLS CLEAR YELLOW URINE AND 1000 MLS PERITONEAL DIALYSIS SOLN 2.5% DWELLING IN AT THIS TIME. PATIENT TOLERATED WELL
[2020-09-07 06:44] LABS: Potassium 3.5 mmol/L (3.5-5.1)
[2020-09-07 07:15] LABS: BUN/Creatinine Ratio 15.9; Calcium 9.4 mg/dL (8.5-10.1)
[2020-09-07] MEDS: Fluticasone-Umeclidinium-Vilan (Trelegy Ellipta 100-62.5-25 Mcg/I IN SCH (08:46)
[2020-09-07] MEDS: DOCUSATE SOD 100 MG CAP PO SCH (08:49)
[2020-09-07] MEDS: ASPirin 81 mg TAB PO SCH (08:49)
[2020-09-07] MEDS: PANTOPRAZOLE 40 MG TAB PO SCH (08:49)
[2020-09-07] MEDS: CLOPIDOGREL BISULFATE 75 MG TAB PO SCH (08:50)
[2020-09-07] MEDS: CHOLECALCIFEROL (VITD3) 1,000UNIT=25mCg TAB PO SCH (08:50)
[2020-09-07] MEDS: CALCIUM CARB 500 MG CHEW TAB PO SCH (08:50)
--- NOTE | 2020-09-07 08:57 | NUR ---
PERITONEAL DIALYSIS DRAINAGE IS 950MLS CLEAR YELLOW URINE AND 1000MLS PERITONEAL DIALYSIS SOLN 2.5% IN AT THIS TIME. PT TOLERATED WELL
[2020-09-07 09:00] VITALS: BP 135/67
[2020-09-07] MEDS: HYDROcodone-ACET 10/325MG TAB PO PRN (10:44)
--- NOTE | 2020-09-07 12:18 | NUR ---
PERITONEAL DIALYSIS DRAINAGE IS 850MLS CLEAR YELLOW URINE AND 1000MLS PERITONEAL DIALYSIS SOLN 2.5% IN AT THIS TIME. PT TOLERATED WELL
[2020-09-07 13:00] VITALS: BP 143/102
--- NOTE | 2020-09-07 13:42 | NUR ---
DISCHARGE INFORMATION FAXED TO [facility]
[2020-09-07 13:48] VITALS: BP 122/82
--- NOTE | 2020-09-07 15:12 | NUR ---
PERITONEAL DIALYSIS DRAINAGE IS 950MLS CLEAR YELLOW URINE AND 1000MLS PERITONEAL DIALYSIS SOLN 2.5% IN AT THIS TIME. PT TOLERATED WELL
--- NOTE | 2020-09-07 15:37 | NUR ---
Discharge instructions given as ordered. Encourage to follow up with PMD as instructed. All questions and concerns addressed. Patient verbalized understanding. Medication reconciliation form completed and copy given to patient. Home medications held in Pharmacy returned to patient. IV removed with catheter intact, pressure dressing applied, low catheter removed. . Patient taken to vehicle via wheelchair with all personal belongings, accompanied by staff and family member. No distress noted at time of departure.
--- NOTE | 2020-09-07 16:11 | NUR ---
assessment Patient discharged home prior to being assessed. Addendum: 09/07/20 at 1612 by Marcy GAMEZ Amended: Links added.
[2020-09-08] MEDS ORDERED: POTASSIUM CHL 20 Meq TABLET PO SCH (10:00)
== END 2020-09-07 15:37 | disposition home or self-care (01) | DRG 291 ==
LOC: WEST WING 16:38 → CENTRAL 09-01 14:52
PROVIDERS: ADMIT Internal Medicine Cardiovascular Disease; ATTEND Internal Medicine Cardiovascular Disease
PROC: 0W9B3ZZ Drainage of Left Pleural Cavity, Percutaneous Approach (ICD-10-PCS; principal; 2020-09-04)
DX: I13.2 Hypertensive heart and chronic kidney disease with heart failure and with stage 5 chronic kidney disease, or end stage renal disease (principal); I50.21 Acute systolic (congestive) heart failure; J96.90 Respiratory failure, unspecified, unspecified whether with hypoxia or hypercapnia; N18.6 End stage renal disease; E87.1 Hypo-osmolality and hyponatremia; K80.10 Calculus of gallbladder with chronic cholecystitis without obstruction; J91.8 Pleural effusion in other conditions classified elsewhere; D63.1 Anemia in chronic kidney disease; E11.22 Type 2 diabetes mellitus with diabetic chronic kidney disease; E11.51 Type 2 diabetes mellitus with diabetic peripheral angiopathy without gangrene; I25.10 Atherosclerotic heart disease of native coronary artery without angina pectoris; I25.2 Old myocardial infarction; I25.5 Ischemic cardiomyopathy; Z80.0 Family history of malignant neoplasm of digestive organs; Z82.49 Family history of ischemic heart disease and other diseases of the circulatory system; Z95.1 Presence of aortocoronary bypass graft; Z99.2 Dependence on renal dialysis; Z79.82 Long term (current) use of aspirin; Z88.8 Allergy status to other drugs, medicaments and biological substances
CPT/HCPCS: 10022; 36415; 71045; 74018; 76942; 78226; 80048; 80053; 81001; 83735; 84100; 85025; 85610; 85730; 86850; 86900; 86901; 87081; 89051; 93306; 94640; G0378; J0885

== ENCOUNTER → 2020-08-31 | Outpatient (CLI) | payer OTHER ==
[~2020-08-31] MED LIST changes: +CALC500C66 PO; +CHOL20007 PO; +DOCU-80 PO; +EZET10TA22 PO; +FLUT1AER3 IN; +GENT0.1O5 TOP; +HYDR4CRE35 PR; +MELA10CA PO; -MELA3TAB18 PO; +PANT40TA2 PO; -POTA-180 PO; +SODI10PA PO; +TEMA15CA91 PO; +[UNRECOGNIZED DRUG - CODE] EX
== END | disposition home or self-care (01) ==
LOC: Rad HDHVI 11:05
PROVIDERS: ATTEND Internal Medicine Cardiovascular Disease
DX: J90 Pleural effusion, not elsewhere classified (principal); R09.89 Other specified symptoms and signs involving the circulatory and respiratory systems; I51.7 Cardiomegaly; I70.0 Atherosclerosis of aorta; R06.02 Shortness of breath; Z98.61 Coronary angioplasty status; Z95.0 Presence of cardiac pacemaker
CPT/HCPCS: 71046

== ENCOUNTER → 2020-09-22 | Outpatient (CLI) | payer OTHER ==
[~2020-09-22] MED LIST changes: +PANT40TA2 PO; +TEMA15CA91 PO
== END | disposition home or self-care (01) ==
LOC: Rad HDHVI 10:51
PROVIDERS: ATTEND Internal Medicine Cardiovascular Disease
DX: R91.8 Other nonspecific abnormal finding of lung field (principal); R06.02 Shortness of breath; I51.7 Cardiomegaly; I70.0 Atherosclerosis of aorta; Z88.8 Allergy status to other drugs, medicaments and biological substances; Z95.0 Presence of cardiac pacemaker
CPT/HCPCS: 71046

== ENCOUNTER → 2020-09-30 | Outpatient (CLI) | payer OTHER | END | disposition home or self-care (01) | LOC: Rad HDHVI 15:09 | PROVIDERS: ATTEND Internal Medicine Cardiovascular Disease | DX: I25.5 Ischemic cardiomyopathy (principal); I10 Essential (primary) hypertension | CPT/HCPCS: 93306 ==

== ENCOUNTER → 2020-11-20 | Outpatient (CLI) | payer OTHER ==
[~2020-11-20] MED LIST changes: +TEMA15CA2 PO; -TEMA15CA91 PO
[2020-11-20 10:27] VITALS: BP 167/93
[2020-11-20 10:48] VITALS: BP 161/91
[2020-11-20 11:48] LABS: Basophils # (auto) 0 10 ^3/uL (0-0.2); Eosinophils # (auto) 0.2 10 ^3/uL (0-0.8); Red Blood Cells 4.38 10^6/uL (4.5-5.90)
[2020-11-20 11:51] LABS: Basophils % (auto) 0.8 % (0.0-2.0); Hematocrit 34.6 % (41.0-53.0); Hemoglobin 11.5 g/dL (13.5-17.5); Lymphocytes # (auto) 0.4 10 ^3/uL (0.4-5.4); Lymphocytes % (auto) 7.7 % (10.0-50.0); Mean Corpuscular Hemoglobin 26.2 pg (28.0-32.0); Mean Corpuscular Hgb Conc. 33.3 g/dL (32.0-36.0); Mean Corpuscular Volume 78.8 fL (80.0-100.0); Monocytes # (auto) 0.6 10 ^3/uL (0-1.3); Monocytes % (auto) 11.2 % (0.0-12.0); Neutrophils # (auto) 4.3 10 ^3/uL (1.6-8.6); Neutrophils % (auto) 76.3 % (37.0-80.0); Platelet Count (auto) 145 10^3/uL (140-450); White Blood Cell 5.6 10^3/uL (4.4-10.8)
[2020-11-20 11:56] LABS: Red Cell Distribution Width 29.2 % (11.8-14.3)
[2020-11-20 11:59] LABS: Calcium 8.9 mg/dL (8.5-10.1); Potassium 3.5 mmol/L (3.5-5.1)
[2020-11-20 12:02] LABS: BUN/Creatinine Ratio 12.9
[2020-11-20 12:07] LABS: INR 1.11 (0.9-1.15); Partial Thromboplastin Time 29.1 sec (23.0-31.2)
== END | disposition home or self-care (01) ==
LOC: Rad HDHVI 10:04
PROVIDERS: ATTEND Internal Medicine Cardiovascular Disease
DX: Z01.812 Encounter for preprocedural laboratory examination (principal); J90 Pleural effusion, not elsewhere classified; Z45.2 Encounter for adjustment and management of vascular access device; Z95.810 Presence of automatic (implantable) cardiac defibrillator
CPT/HCPCS: 36415; 71046; 80048; 85025; 85610; 85730; 93005; G0463

== ENCOUNTER 2020-11-24 11:30 | Day surgery (SDC) | payer OTHER, MEDICARE ==
[~2020-11-24] VITALS: Ht 182.9 cm; Wt 100.0 kg
[~2020-11-24 11:30] MED LIST changes: +ATEN50TA PO
[2020-11-24] MEDS ORDERED: LIDOCAINE 2%HCL (LOCAL ANESTH.) INJ 20ML MDV ONE (12:22)
[2020-11-24] MEDS ORDERED: IOHEXOL 350 MG/ML 100ML IJ ONE (12:22)
[2020-11-24] MEDS ORDERED: VANCOMYCIN 1GM/250ML 250 ML IV ONE (12:30)
[2020-11-24] MEDS ORDERED: fentaNYL CITRATE 100 MCG/2 ML VL ONE (12:47)
[2020-11-24] MEDS ORDERED: MIDAZOLAM HCL 2MG/2ML 2ml VIAL (1mg/ml) ONE (12:47)
[2020-11-24 13:00] VITALS: BP 170/95
[2020-11-24] MEDS ORDERED: VANCOMYCIN HCL 1000 MG VL ONE (13:01)
[2020-11-24] MEDS ORDERED: FUROSEMIDE 20 MG/2 ML VIAL ONE ×2 (14:17→14:27)
[2020-11-24] MEDS ORDERED: HYDROcodone-ACET 5/325MG TAB PO PRN (15:15)
[2020-11-24] MEDS ORDERED: ACETAMINOPHEN 325 MG TAB PO PRN (15:15)
== END 2020-11-24 16:35 | disposition home or self-care (01) ==
LOC: CATH 11:30
PROVIDERS: ATTEND Internal Medicine Cardiovascular Disease
DX: Z45.02 Encounter for adjustment and management of automatic implantable cardiac defibrillator (principal); I25.5 Ischemic cardiomyopathy; I49.5 Sick sinus syndrome; E78.5 Hyperlipidemia, unspecified; F17.210 Nicotine dependence, cigarettes, uncomplicated; I11.0 Hypertensive heart disease with heart failure; I25.810 Atherosclerosis of coronary artery bypass graft(s) without angina pectoris; J44.9 Chronic obstructive pulmonary disease, unspecified; G47.30 Sleep apnea, unspecified; Z20.822 Contact with and (suspected) exposure to COVID-19; Z98.890 Other specified postprocedural states; Z79.899 Other long term (current) drug therapy; Z80.0 Family history of malignant neoplasm of digestive organs; Z68.29 Body mass index [BMI] 29.0-29.9, adult; Z88.8 Allergy status to other drugs, medicaments and biological substances; Z99.2 Dependence on renal dialysis
CPT/HCPCS: 33249; 71045; 93005; 94660; C1769; C1882; C1887; C1892; C1895; C1898; J1940; J2250; J3010; J3370; J7030; Q9967; U0003; 99152; 99153

== ENCOUNTER → 2020-11-25 | Outpatient (CLI) | payer OTHER, MEDICARE ==
[~2020-11-25] MED LIST changes: -ATEN-60 PO; -CALC500C66 PO; -DOCU-80 PO; -GENT0.1O5 TOP; -HYDR4CRE35 PR; -PANT40TA2 PO; -SODI10PA PO; -TEMA15CA2 PO; -[UNRECOGNIZED DRUG - CODE] EX
== END | disposition home or self-care (01) ==
LOC: Rad HDHVI 12:50
PROVIDERS: ATTEND Internal Medicine Cardiovascular Disease
DX: J90 Pleural effusion, not elsewhere classified (principal); R06.02 Shortness of breath; J98.4 Other disorders of lung; I51.7 Cardiomegaly; I70.0 Atherosclerosis of aorta; Z98.61 Coronary angioplasty status; Z95.810 Presence of automatic (implantable) cardiac defibrillator
CPT/HCPCS: 71046